=== PATIENT | female | born 1935 | race Caucasian/White ===

== ENCOUNTER 2016-04-09 14:26 | Emergency (ER) | payer MEDICARE ==
[~2016-04-09 14:26] MED LIST: ACT300 PO; CHOL10002 PO; CLOT15CR27 TOP; COR40 PO; FES300 PO; FURO40TA PO; K10 PO; KLO1 PO; LACL30 PO; PROT40T PO; SPIR25TA17 PO; TRAZ50TA52 PO; [UNRECOGNIZED DRUG - CODE] PO
[2016-04-09 14:43] VITALS: BP 137/61; PULSE 100; RESP 16; O2SAT 100
[2016-04-09 17:05] LABS: BASOPHILS % (AUTO) 0.3 % (0-3); EOSINOPHILS % (AUTO) 1.3 % (0-5); MONOCYTES % (AUTO) 6.1 % (4-12); Mean Corpuscular Hemoglobin 30.4 pg (27.0-35.0); Mean Corpuscular Volume 89.1 fL (81-100); NEUTROPHILS % (AUTO) 86.4 % (40-74); Platelet Count 62 bil/L (150-400)
[2016-04-09 17:34] LABS: TROPONIN T < 0.010 ug/L (0.0-0.011)
[2016-04-09 17:39] LABS: Magnesium 2.3 mg/dL (1.6-2.6)
--- NOTE | 2016-04-09 17:54 | ED.REPORT ---
HPI-Extremity Problem Lower Date of Service Apr 09, 2016 ED Provider: Doc,Ed MD The patient is a 80 year old female who presents to the emergency department complaining of bilateral lower extremity swelling that has been worsening over the last few days. The patient injured her back 5 days ago and since has been sleeping in her recliner. She normally sleeps in her bed with her legs elevated. She has noticed some oozing from her lower leg on the left. Her legs are chronically red. She has had similar symptoms in the past. She denies numbness, weakness, fever, chills, chest pain or shortness of breath. Nursing Notes Stated Complaint: POSSIBLE EDEMA, BACK PAIN Chief Complaint: General Complaint Nursing Notes Reviewed: Yes Allergies: Coded Allergies: Penicillins (Verified Allergy, Unknown, 04/09/16) Tetanus Vaccines and Toxoid (Verified Allergy, Unknown, 04/09/16) Scheduled Cholecalciferol-Expunged Drug, Do Not Renew! (Vitamin D3-Expunged Drug, Do Not Renew!) 1,000 Unit Tablet 1,800 UNITS PO DAILY ClonazePAM-Expunged Drug, Do Not Renew! (ClonazePAM-Expunged Drug, Do Not Renew! ) 1 Mg Tablet 1 MG PO TID Clotrimazole-Expunged Drug, Do Not Renew! (Mycelex 1%-Expunged Drug, Do Not Renew!) 60 Appl/15 Gm Cream 1 APPL TOP TID Ferrous Sulfate-Expunged Drug, Do Not Renew! (Feosol-Expunged Drug, Do Not Renew !) 325 Mg Tablet 325 MG PO BID Furosemide-Expunged Drug, Do Not Renew! (Lasix-Expunged Drug, Do Not Renew!) 40 Mg Tablet 40 MG PO DAILY Lactulose-Expunged Drug, Do Not Renew! (Cephalac-Expunged Drug, Do Not Renew!) 20 Gm/30 Ml Syrup 30 ML PO BID Nadolol-Expunged Drug, Do Not Renew! (Nadolol-Expunged Drug, Do Not Renew!) 40 Mg Tablet 40 MG PO DAILY Pantoprazole-Expunged Drug, Do Not Renew! (Protonix-Expunged Drug, Do Not Renew! ) 40 Mg Tabec 40 MG PO DAILYAC Paroxetine-Expunged Drug, Do Not Renew! (Paxil-Expunged Drug, Do Not Renew!) 10 Mg Tablet 10 MG PO DAILY Potassium Chl-Expunged Drug, Do Not Renew! (G-LLC-Pjzifjov Drug, Do Not Renew!) 10 Meq Tabsr 40 MEQ PO DAILY TAKE WITH FOOD Spironolactone-Expunged Drug, Do Not Renew! (Spironolactone-Expunged Drug, Do Not Renew!) 25 Mg Tablet 100 MG PO DAILY Trazodone-Expunged Drug, Do Not Renew! (Trazodone-Expunged Drug, Do Not Renew!) 50 Mg Tablet 50 MG PO HS Ursodiol-Expunged Drug, Do Not Renew! (Actigall--Expunged Drug, Do Not Renew!) 300 Mg Capsule 600 MG PO BID Treatment and prevention of gallstones General Time Seen by MD: 17:54 Chief Complaint Other (bilateral lower extremity redness and swelling) Hx Obtained From: Patient, Son Arrived By: Walk-in Onset Occurred: 4 days ago Symptom Duration: Since onset Location: : Leg left: Leg right Quality: Painful Severity: Current: Mild Severity: Maximum: Mild Associated with: Reports: Swelling Pertinent Negative: Pt denies other symptoms Recent Healthcare: No recent doctor visit, No recent hospitalization Similar Sx Previous: Yes Past Medical History Past Medical History 1. Primary Biliary Cirrhosis and gastric leiomyoma (followed by Dr. Nehal Palacios of [facility] in [place]- 2. 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 Iron deficiency anemia 4. GERD 5. Osteoporosis 6. Depression/Anxiety 7. Chronic hepatic encephalopathy and portal gastropathy due to #1 8. Upper GI bleed from esophageal varices with severe orthostatic hypotension Past Surgical History Reports: Cholecystectomy, Hysterectomy Smoking History Former Smoker Social History Alcohol Use: Denies alcohol use Drug Use: Denies drug use Other Social History: Good social support, Local resident Ambulatory Status Independent Review of Systems Constitutional: Denies: Chills, Fever Musculoskeletal: Reports: Back pain, Extremity pain, Extremity swelling Skin: Reports Rash Neurologic: Denies: Focal weakness, Numbness Complete sys rev & neg: except as marked. Respiratory: Denies: Shortness of breath Cardiovascular: Denies: Chest pain Physical Exam Initial Vital Signs Vital Signs (First) Date Time Temp Pulse Resp B/P Pulse Ox O2 Delivery O2 Flow Rate FiO2 04/09/16 14:43 36 100 16 137/61 100 Room Air Initial VS: Reviewed Head / Eyes: Atraumatic, Normocephalic, PERRL ENT: Mucous membranes moist, Conjunctiva normal, No scleral icterus Neck: Supple, Non-tender, Full range of motion Respiratory: Breath sounds normal, Clear to auscultation, No respiratory distress Abdomen / GI: Soft, Non-tender, No guarding, No rebound, No distention Lymphatic: No lymphadenopathy Upper Extremities: Vascular intact, Neuro intact, No swelling, No tenderness Skin: Warm, Dry, No cyanosis Neurologic: Alert, Oriented, Nonfocal Psychiatric: Mood/affect normal, Behavior normal, Normal thought content Lower Extremity / Pelvis / MS: Neurologic intact, Vascular intact 2+ pitting edema bilateral lower extremities with some clear fluid weeping on the left. 2+ PT pulses palpable. Sensation and motor intact. General/Constitutional: Awake, Alert Interpretation & Diagnostics Lab Results Interpretation Result Diagram: 04/09/16 1651 04/09/16 1651 Test 04/09/16 16:51 White Blood Count 4.0th/mm3 (3.8-10.1) Red Blood Count 3.49mil/mm3 (3.90-5.20) Hemoglobin 10.6g/dL (12.0-15.6) Hematocrit 31.1% (35.0-46.0) Mean Corpuscular Volume 89.1fL (81-100) Mean Corpuscular Hemoglobin 30.4pg (27.0-35.0) Mean Corpuscular Hemoglobin Concent 34.1% (32.0-37.0) Red Cell Distribution Width 17.3% (12.3-15.4) Platelet Count 62bil/L (150-400) Neutrophils (%) (Auto) 86.4% (40-74) Lymphocytes (%) (Auto) 5.6% (14-46) Monocytes (%) (Auto) 6.1% (4-12) Eosinophils (%) (Auto) 1.3% (0-5) Basophils (%) (Auto) 0.3% (0-3) Sodium Level 136mEq/L (134-144) Potassium Level 3.9mEq/L (3.5-5.2) Chloride Level 99mEq/L (97-108) Carbon Dioxide Level 21mmol/L (18-29) Blood Urea Nitrogen 47mg/dL (8-27) Creatinine 0.99mg/dL (0.57-1.00) Estimat Glomerular Filtration Rate 78mL/min (>59) Glucose Level 123mg/dL (60-99) Calcium Level 9.0mg/dL (8.5-10.1) Magnesium Level 2.3mg/dL (1.6-2.6) Total Bilirubin 1.3mg/dL (0.0-1.2) Aspartate Amino Transf (AST/SGOT) 33U/L (0-50) Alanine Aminotransferase (ALT/SGPT) 25U/L (0-32) Alkaline Phosphatase 91U/L (25-165) Troponin T < 0.010ug/L (0.0-0.011) Pro-B-Type Natriuretic Peptide 116.5pg/mL (0-738) Total Protein 7.5g/dL (6.4-8.4) Albumin 3.5g/dL (3.4-5.0) ECG Interpretation ECG Interpretation: Sinus tachycardia with a rate of [address] elevation, slight depression in lead I and aVL Time: 17:31 Interpreted by: ED physician Re-Eval/Medical Decision Med Decision/Clinical Course 80-year-old female here with bilateral lower extremity swelling over the last several days. Differential diagnosis includes but is not limited to edema versus new onset heart failure versus DVT versus cellulitis. Patient has been sleeping in a recliner recently, and not elevating her legs the way she usually does. She has no fever, and her labs are unremarkable. I do not feel she has cellulitis at this time. Her pro BNP is normal, ruling out heart failure. I do not think that she has bilateral DVTs causing swelling. She has had swelling like this in the past when she sleeps in the recliner. This is most consistent with dependent edema. She has been discharged with advice to keep her legs elevated as much as possible and follow-up with her primary care physician. She is aware and amenable to discharge at this time. Source of Hx: Old records, Family Re-Evaluation/Progress : Time of Eval: 18:18 Re-Evaluation/Progress Note: Discussed plan for discharge. All questions were addressed. Counseled Regarding: Diagnosis, Lab results, Need for follow-up, When/why to return to ED Discharge & Departure Impression: Primary Impression: Bilateral lower extremity edema Disposition: Home Discharge Condition All VS Reviewed: Yes Condition: Stable Additional Instructions: Your labs today are reassuring. The swelling will improve with elevation. Keep your legs elevated as much as possible. Call your doctor tomorrow to schedule a followup appointment for early next week. Please return for any concerning symptoms. Scribe Attestation Portions of this note were transcribed by Aislinn Rockwell. I, Dr. Dobson personally performed the history, physical exam and medical decision-making; I reviewed and confirmed the accuracy of the information in the transcribed note. Signed by : Kaitlyn Bucio, 04/09/2016 and 1825. Kalpana Dobson MD Apr 09, 2016 17:54 Aislinn Rockwell Apr 09, 2016 18:13
[2016-04-09 18:07] VITALS: BP 117/50; PULSE 92; RESP 20; O2SAT 100
[2016-04-09 18:50] VITALS: BP 117/50; PULSE 92; RESP 20; O2SAT 100
== END 2016-04-09 18:52 | disposition home or self-care (01) ==
LOC: SED 14:26
DX: R60.0 Localized edema (principal); M54.9 Dorsalgia, unspecified; K21.9 Gastro-esophageal reflux disease without esophagitis; X58.XXXA Exposure to other specified factors, initial encounter; Y93.9 Activity, unspecified; Y99.8 Other external cause status; Y92.9 Unspecified place or not applicable; Z86.012 Personal history of benign carcinoid tumor; Z87.891 Personal history of nicotine dependence; Z88.7 Allergy status to serum and vaccine; Z88.0 Allergy status to penicillin

== ENCOUNTER 2016-04-11 20:53 | Inpatient (IN) | payer MEDICARE ==
[~2016-04-11] VITALS: Ht 167.6 cm; Wt 91.5 kg
[2016-04-11 20:58] VITALS: BP 151/71; PULSE 110; RESP 14; O2SAT 100
--- NOTE | 2016-04-11 21:15 | ED.REPORT ---
HPI-Altered Mental Status Date of Service Apr 11, 2016 ED Provider: Kalpana Dobson MD This is a 80 year old female brought to the ED by EMS due to increased confusion of unknown onset, last seen normal two days ago. Pt lives at [facility], son was called by staff reporting increased confusion. Son found pt walking in her room naked and was unable to answer questions normally. Also reports diarrhea and back pain. Denies fever, chills, nausea, vomiting, constipation. Pt in the ED 2 days ago for bilateral lower extremity swelling, did not exhibit similar presentation at that time and was answering questions appropriately. Pt states he last spoke to the pt that day and is unaware of when the confusion began. Nursing Notes Stated Complaint: CONFUSION Chief Complaint: General Complaint Nursing Notes Reviewed: Yes Allergies: Coded Allergies: Penicillins (Verified Allergy, Unknown, 04/09/16) Tetanus Vaccines and Toxoid (Verified Allergy, Unknown, 04/09/16) Scheduled Cholecalciferol-Expunged Drug, Do Not Renew! (Vitamin D3-Expunged Drug, Do Not Renew!) 1,000 Unit Tablet 1,800 UNITS PO DAILY ClonazePAM-Expunged Drug, Do Not Renew! (ClonazePAM-Expunged Drug, Do Not Renew! ) 1 Mg Tablet 1 MG PO TID Clotrimazole-Expunged Drug, Do Not Renew! (Mycelex 1%-Expunged Drug, Do Not Renew!) 60 Appl/15 Gm Cream 1 APPL TOP TID Ferrous Sulfate-Expunged Drug, Do Not Renew! (Feosol-Expunged Drug, Do Not Renew !) 325 Mg Tablet 325 MG PO BID Furosemide-Expunged Drug, Do Not Renew! (Lasix-Expunged Drug, Do Not Renew!) 40 Mg Tablet 40 MG PO DAILY Lactulose-Expunged Drug, Do Not Renew! (Cephalac-Expunged Drug, Do Not Renew!) 20 Gm/30 Ml Syrup 30 ML PO BID Nadolol-Expunged Drug, Do Not Renew! (Nadolol-Expunged Drug, Do Not Renew!) 40 Mg Tablet 40 MG PO DAILY Pantoprazole-Expunged Drug, Do Not Renew! (Protonix-Expunged Drug, Do Not Renew! ) 40 Mg Tabec 40 MG PO DAILYAC Paroxetine-Expunged Drug, Do Not Renew! (Paxil-Expunged Drug, Do Not Renew!) 10 Mg Tablet 10 MG PO DAILY Potassium Chl-Expunged Drug, Do Not Renew! (Y-LOZ-Kkksmcsb Drug, Do Not Renew!) 10 Meq Tabsr 40 MEQ PO DAILY TAKE WITH FOOD Spironolactone-Expunged Drug, Do Not Renew! (Spironolactone-Expunged Drug, Do Not Renew!) 25 Mg Tablet 100 MG PO DAILY Trazodone-Expunged Drug, Do Not Renew! (Trazodone-Expunged Drug, Do Not Renew!) 50 Mg Tablet 50 MG PO HS Ursodiol-Expunged Drug, Do Not Renew! (Actigall--Expunged Drug, Do Not Renew!) 300 Mg Capsule 600 MG PO BID Treatment and prevention of gallstones General Time Seen by MD: 21:09 Chief Complaint Confused Hx Obtained From: Son Arrived By: Ambulance Sudden in Onset?: Yes Onset Occurred: Yesterday Symptom Duration: Since onset Severity: Current: Mild Pertinent Negative: Pt denies other symptoms Recent Healthcare: Recent doctor visit Similar Sx Previous: Yes Past Medical History Past Medical History 1. Primary Biliary Cirrhosis and gastric leiomyoma (followed by Dr. Nehal Palacios of [facility] in [facility] 2. 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 Iron deficiency anemia 4. GERD 5. Osteoporosis 6. Depression/Anxiety 7. Chronic hepatic encephalopathy and portal gastropathy due to #1 8. Upper GI bleed from esophageal varices with severe orthostatic hypotension Past Surgical History Reports: Cholecystectomy, Hysterectomy Smoking History Former Smoker Social History Alcohol Use: Denies alcohol use Drug Use: Denies drug use Other Social History: Good social support, Local resident Ambulatory Status Independent Review of Systems Constitutional: Denies: Chills, Fever Respiratory: Denies: Shortness of breath GI: Reports: Diarrhea, Denies: Abdominal pain, Constipation, Nausea, Vomiting Neurologic: Denies: Headache Psychiatric: Reports: Confusion Complete sys rev & neg: except as marked. Musculoskeletal: Reports: Back pain Physical Exam Initial Vital Signs Vital Signs (First) Date Time Temp Pulse Resp B/P Pulse Ox O2 Delivery O2 Flow Rate FiO2 04/11/16 20:58 36.5 110 14 151/71 100 Room Air Initial VS: Reviewed ENT: Mucous membranes moist, Conjunctiva normal, No scleral icterus Abdomen / GI: Soft, Non-tender, No guarding, No rebound, No distention Skin: Warm, Dry, No cyanosis Psychiatric: Mood/affect normal, Behavior normal, Normal thought content General/Constitutional: Awake Alertness: Positive: Confused Responds to every question with her name. Head / Eyes: Atraumatic, Normocephalic, PERRL, EOMI, No scleral icterus Neck: Atraumatic, Supple, No meningismus, Full range of motion, No swelling, Non-tender, No midline vertebral tend, No masses, No carotid bruit, Thyroid NL Respiratory / Chest: Breath sounds NL, Breath sounds = bilat, No respiratory distress, No rales, No rhonchi, No wheezing Cardiovascular: Heart rate NL, Regular rhythm, Heart sounds NL Lower Ext Edema: Positive: Bilateral 2+, Pitting Neurologic: Oriented X3, Speech NL, No motor deficits, No sensory deficits, CN II - XII intact, Cerebellar NL Lower Extremity / Pelvis / MS: Neurologic intact, Vascular intact L lower extremity is cooler than R leg, chronic venostasis changes in bilateral lower extremities. fine petechiae on both knees Black tarry stool Interpretation & Diagnostics Lab Results Interpretation Result Diagram: 04/12/16 0020 04/11/16 2100 Test 04/11/16 21:00 04/11/16 21:45 04/11/16 22:35 Prothrombin Time 11.8sec (8.1-12.5) Prothromb Time International Ratio 1.10ratio Activated Partial Thromboplast Time 26.7sec (22.8-33.0) Hold Blue Top Tube Received (Received) Sodium Level 137mEq/L (134-144) Potassium Level 4.1mEq/L (3.5-5.2) Chloride Level 102mEq/L (97-108) Carbon Dioxide Level 18mmol/L (18-29) Blood Urea Nitrogen 67mg/dL (8-27) Creatinine 1.00mg/dL (0.57-1.00) Estimat Glomerular Filtration Rate 77mL/min (>59) Glucose Level 151mg/dL (60-99) Calcium Level 9.6mg/dL (8.5-10.1) Magnesium Level 2.3mg/dL (1.6-2.6) Total Bilirubin 1.2mg/dL (0.0-1.2) Aspartate Amino Transf (AST/SGOT) 30U/L (0-50) Alanine Aminotransferase (ALT/SGPT) 28U/L (0-32) Alkaline Phosphatase 87U/L (25-165) Troponin T 0.010ug/L (0.0-0.011) Pro-B-Type Natriuretic Peptide 237.3pg/mL (0-738) Total Protein 7.2g/dL (6.4-8.4) Albumin 3.5g/dL (3.4-5.0) Hold Red Top Tube Received (Received) Hold [place]af Top Tube Received (Received) Acetaminophen Level 15.0ug/mL Rx (10-25) Urine Color Yellow (YELLOW) Urine Appearance Slightly cloudy Urine pH 6.0 (5.0-8.0) Urine Specific [place] 1.020 (1.003-1.035) Urine Protein Negativemg/dL (NEG,TRACE) Urine Glucose (UA) Negativemg/dL (NEGATIVE) Urine Ketones Tracemg/dL (NEGATIVE) Urine Occult Blood Trace (NEGATIVE) Urine Nitrite Negative (NEGATIVE) Urine Bilirubin Negative (NEGATIVE) Urine Urobilinogen Normalmg/dL (NORMAL) Urine Leukocyte Esterase Trace (NEGATIVE) Urine RBC 0-2/hpf (0-2) Urine WBC 6-10/hpf (0-5) Urine Epithelial Cells Occasional/hpf (NONE-MOD) Urine Crystals None seen (NONE SEEN) Urine Bacteria Many/hpf (NONE-FEW) Urine Hyaline Casts None/lpf (NONE) Urine Granular Casts None seen (NONE SEEN) Urine Waxy Casts None seen (NONE SEEN) Urine Red Blood Cell Casts None seen (NONE SEEN) Urine White Blood Cell Casts None seen (NONE SEEN) Urine Mucus None seen (None Seen) Urine Trichomonas None seen (NONE SEEN) Urine Yeast None (NONE SEEN) Urine Culture Reflexed Indicated White Blood Count 7.9th/mm3 (3.8-10.1) Red Blood Count 2.84mil/mm3 (3.90-5.20) Hematocrit 25.7% (35.0-46.0) Mean Corpuscular Volume 90.5fL (81-100) Mean Corpuscular Hemoglobin 29.9pg (27.0-35.0) Mean Corpuscular Hemoglobin Concent 33.1% (32.0-37.0) Red Cell Distribution Width 17.9% (12.3-15.4) Platelet Count 81bil/L (150-400) Neutrophils (%) (Auto) 90.0% (40-74) Lymphocytes (%) (Auto) 4.5% (14-46) Monocytes (%) (Auto) 4.8% (4-12) Eosinophils (%) (Auto) 0% (0-5) Basophils (%) (Auto) 0.1% (0-3) Lactic Acid Level 1.9mmol/L (0.4-2.0) Ammonia 211ug/dL (18-53) ECG Interpretation ECG Interpretation: Sinus tachycardia at a rate of 114 with a PVC No ST elevation T-wave inversion in lead 3 Time: 21:38 Interpreted by: ED physician X-Ray Chest Interpretation Chest Xray Interpretation: IMPRESSION: Chronic interstitial changes. No acute pulmonary process. Dictated by: Teri De Los Santos M.D. on 04/11/2016 at 21:56 Approved by: Teri De Los Santos M.D. on 04/11/2016 at 21:56 CT Head Interpretation Conclusion: Mild age related change. No acute intracranial abnormality. Radiologist: Danni Bridges MD Re-Eval/Medical Decision Med Decision/Clinical Course 80-year-old female with extensive past medical history including dieulafoy lesion, upper GI bleed, cirrhosis, hepatic encephalopathy, chronic venous stasis , anemia here with altered mental status. Differential diagnosis includes but is not limited to urinary tract infection versus pneumonia versus brain lesion versus hepatic encephalopathy. While we were cleaning the patient, it was noted that she had large amounts of melena and some bright red blood per rectum. At this time, I added a type and screen to her workup. Additionally, her right lower extremity was much warmer than her left lower extremity, and diffusely erythematous more so than the left. He is very concerned for cellulitis of the right lower extremity. During her stay, she started to have large volume hematemesis. I discussed the case with who agreed to come in to scope the patient emergently. She does have evidence of urinary tract infection, along with hepatic encephalopathy with a ammonia of 211. Her initial hemoglobin came back at 8.6 which is down 2 points from her visit 2 days ago. Her repeat H&H several hours later was 7. After discussing with Dr. Shine, I started a blood transfusion, and she was taken straight to the endoscopy suite. She has been accepted by hospitalist Dr. Pritchard to the ICU. At this time, she is DO NOT RESUSCITATE, however, family does feel that she would want to be scoped and have intervention on her upper GI bleed if possible. Re-Evaluation/Progress #1: Time of Eval: 22:27 Re-Evaluation/Progress Note: Discussed lab and imaging results and need for admission. Pt understands and agrees with plan, all questions addressed. Re-Evaluation/Progress #2: Time of Eval: 23:38 Re-Evaluation/Progress Note: Pt actively having large volume hematemesis with clots Re-Evaluation/Progress #3: Time of Eval: 23:54 Re-Evaluation/Progress Note: Re-checked, discussed pt care with family members now present in the room. Consultation #1: Referral / Consult Name: Bentley Shine MD Call Returned at: 23:14 Storage Solutions Architect: Will see patient, Agrees with eval, Agrees with plan Note: Consult with GI Consultation #2: Referral / Consult Name: Yasmine Pritchard DO Consulted With: Hospitalist Call Returned at: 23:22 Storage Solutions Architect: Accepts admit Consultation #3: Referral / Consult Name: Bentley Shine MD Call Returned at: 23:41 Storage Solutions Architect: Will see patient Note: GI consult Counseled Regarding: Diagnosis, Lab results, Need for follow-up, Need for admission Patient Discharge & Departure Impression: Primary Impression: Anemia Anemia type: unspecified type Qualified Code: D64.9 - Anemia, unspecified Additional Impressions: Gastrointestinal bleed GI bleed type/associated pathology: unspecified gastrointestinal hemorrhage type Qualified Code: K92.2 - Gastrointestinal hemorrhage, unspecified UTI (urinary tract infection) Urinary tract infection type: site unspecified Hematuria presence: without hematuria Qualified Code: N39.0 - Urinary tract infection, site not specified Disposition: ADMITTED TO HOSPITAL Discharge Condition All VS Reviewed: Yes Condition: Stable Referrals: NOPCP (PCP) Crit Care Except Billable Proc Time Spent: 30-74 minutes Services Performed: Patient management by me, Time spent at bedside, Reviewing test results, Reviewing imaging, Discussing patient care, Documentation in record, Time with fam/surrogate Scribe Attestation Portions of this note were transcribed by Gold Reyes. I, Dr. Dobson personally performed the history, physical exam and medical decision-making; I reviewed and confirmed the accuracy of the information in the transcribed note. Signed by: chirag Funk. 04/11/2016, 21:00. Kalpana Dobson MD Apr 11, 2016 21:15 GOLD REYES Apr 11, 2016 21:28
[2016-04-11] MEDS ORDERED: 0.9% Sodium Chloride 1,000 ML IV ONE (21:45)
[2016-04-11] MEDS ORDERED: levoFLOXacin Inj 750 MG in IV Premix 1 EACH IV ONE (21:50)
[2016-04-11] MEDS ORDERED: metroNIDAZOLE Inj 500 MG in IV Premix 1 EACH IV ONE (21:50)
[2016-04-11 21:51] LABS: TROPONIN T 0.01 ug/L (0.0-0.011)
[2016-04-11] MEDS ORDERED: Pantoprazole 4 mg/mL 10 mL Inj IVPUSH ONE ×2 (21:55→23:45)
--- NOTE | 2016-04-11 21:58 | DRSVH ---
PROCEDURE: X-RAY CHEST ONE VIEW, PORTABLE ([id number]) INDICATIONS: confused TECHNIQUE: One view of the chest was acquired. COMPARISON: [facility], , CHEST 1VW (PORTABLE), 05/19/2013, 11:41. [facility], CR, CHEST 1VW (PORTABLE), 05/18/2013, 6:22. FINDINGS: Surgical changes and devices: Upper quadrant clips are noted. Lungs and pleura: Chronic interstitial changes are present. Mediastinum: Mediastinal contours appear normal. Heart size is normal. Bones and chest wall: No suspicious bony lesions. Overlying soft tissues appear unremarkable. IMPRESSION: Chronic interstitial changes. No acute pulmonary process. Dictated by: Teri De Los Santos M.D. on 04/11/2016 at 21:56 Approved by: Teri De Los Santos M.D. on 04/11/2016 at 21:56
[2016-04-11 22:01] LABS: INR 1.1 ratio
[2016-04-11 22:02] LABS: Magnesium 2.3 mg/dL (1.6-2.6)
[2016-04-11 22:20] LABS: APPEARANCE,URINE SLIGHTLY CLOUDY (CLEAR,HAZY); COLOR,URINE YELLOW (YELLOW); OCCULT BLOOD,URINE TRACE (NEGATIVE); UROBILINOGEN,URINE NORMAL (NORMAL)
[2016-04-11 22:54] LABS: BASOPHILS % (AUTO) 0.1 % (0-3); EOSINOPHILS % (AUTO) 0 % (0-5); MONOCYTES % (AUTO) 4.8 % (4-12); Mean Corpuscular Hemoglobin 29.9 pg (27.0-35.0); Mean Corpuscular Volume 90.5 fL (81-100); Platelet Count 81 bil/L (150-400)
[2016-04-11] MEDS ORDERED: Ondansetron 2 mg/mL 2 mL Inj IVPUSH PRN (23:35)
[2016-04-11] MEDS: Pantoprazole Inj 80 MG in 0.9% Sodium Chloride 80 ML IV SCH (23:40)
[2016-04-11] MEDS ORDERED: Erythromycin Inj 250 MG in 0.9% Sodium Chloride 100 ML IV ONE (23:45)
[2016-04-11] MEDS: Octreotide Inj 500 MCG in 0.9% Sodium Chloride 99 ML IV SCH (23:54)
[2016-04-12] VITALS (16 sets, daily range): BP systolic 105–141; BP diastolic 43–76; PULSE 95–112; RESP 16–20; O2SAT 95–100
[2016-04-12] MEDS ORDERED: 0.9% Sodium Chloride 250 ML IV STA (00:39)
--- NOTE | 2016-04-12 00:45 | PCM.HPANE ---
Patient Data Date of Service: Apr 12, 2016 Surgeon Admitting Provider:Yasmine Pritchard DO Attending Provider:Yasmine Pritchard DO Primary Care Physician:Alex Other Provider:Ezequiel Clancy Anesthesia Reason for Visit Gi Bleed, Anemia, Uti Ht/WT & BMI Height (Feet): 5 Height (Inches): 7 Weight (Kilograms): 75 Body Mass Index Allergies Coded Allergies: Penicillins (Verified Allergy, Unknown, 04/09/16) Tetanus Vaccines and Toxoid (Verified Allergy, Unknown, 04/09/16) Past Anesthesia History Anesthesia History: Denies:: Abnormal Airway, Anesthesia Reactions, Difficult Intubation Diabetes History Hx Diabetes?: No MRSA MRSA: No Medications Active Scripts Clotrimazole-Expunged Drug, Do Not Renew! (Mycelex 1%-Expunged Drug, Do Not Renew!)60 Appl/15 Gm Cream1 Appl TOP TID 30 Days Prov:Israel Guevara MD 05/21/13 Nadolol-Expunged Drug, Do Not Renew! 40 Mg Gwszye14 Mg PO DAILY 30 Days Prov:Israel Guevara MD 05/21/13 Furosemide-Expunged Drug, Do Not Renew! (Lasix-Expunged Drug, Do Not Renew!)40 Mg Bogmin66 Mg PO DAILY 30 Days Prov:Israel Guevara MD 05/21/13 Spironolactone-Expunged Drug, Do Not Renew! 25 Mg Minbnc806 Mg PO DAILY 30 Days Prov:Israel Guevara MD 05/21/13 Pantoprazole-Expunged Drug, Do Not Renew! (Protonix-Expunged Drug, Do Not Renew! )40 Mg Tabec40 Mg PO DAILYAC 30 Days Prov:Israel Guevara MD 05/21/13 Reported Medications Cholecalciferol-Expunged Drug, Do Not Renew! (Vitamin D3-Expunged Drug, Do Not Renew!)1,000 Unit Tablet1,800 Units PO DAILY 05/17/13 Paroxetine-Expunged Drug, Do Not Renew! (Paxil-Expunged Drug, Do Not Renew!)10 Mg Dkanch91 Mg PO DAILY 05/17/13 Lactulose-Expunged Drug, Do Not Renew! (Cephalac-Expunged Drug, Do Not Renew!) 20 Gm/30 Ml Syrup30 Ml PO BID 01/20/13 Ferrous Sulfate-Expunged Drug, Do Not Renew! (Feosol-Expunged Drug, Do Not Renew !)325 Mg Ywikbs353 Mg PO BID 01/20/13 Potassium Chl-Expunged Drug, Do Not Renew! (T-GBS-Dgkxlvxb Drug, Do Not Renew!) 10 Meq Tabsr40 Meq PO DAILY #30 TAB TAKE WITH FOOD 01/20/13 Trazodone-Expunged Drug, Do Not Renew! 50 Mg Ybaunu04 Mg PO HS 01/20/13 Ursodiol-Expunged Drug, Do Not Renew! (Actigall--Expunged Drug, Do Not Renew!) 300 Mg Otwyyfo822 Mg PO BID Treatment and prevention of gallstones 01/20/13 ClonazePAM-Expunged Drug, Do Not Renew! 1 Mg Tablet1 Mg PO TID 01/20/13 History History of ENT Problems?: Yes HEENT History: Positive for:: Cataracts Denies:: Abnormal Airway Difficult Intubation Dysphagia Sinus Problem Hx of Heart Problems?: Yes Cardiovascular History: Positive for:: Edema Denies:: AICD Cardiac Surgery Congestive Heart Failure Hypertension Pacemaker Hx of Respiratory Problem?: No Respiratory History: Positive for:: Hemoptysis Denies:: Tuberculosis Hx Neurologic Problems?: Yes (hepatic encephalopathy) Hx of GI Problems?: Yes Gastrointestinal History: Positive for:: Gastrointestinal Bleeding (upper GI bleeding) Heartburn Liver Disease (primary bilary cirrhosis) Rectal Bleeding Denies:: Hepatitis Hiatal Hernia Hx of Problems?: No Hx Musculoskeletal Problems?: Yes Musculoskeletal History: Denies:: Back Injury Joint Replacement Musculoskeletal Trauma Hx of Psycho/Social Problems?: No Hx Surgeries?: Yes (Gallbladder, Hysterectomy ) Hx Any Other Health Problems?: No Other History: Positive for:: Hospitalization Denies:: Thyroid Disease History Blood Transfusions: Denies:: Blood Transfusions Hx Diabetes: No Hx Alcohol Use: NoHx Substance Use: No Smoking Status: Former Smoker Have You Smoked inLast 12 mo: No Stop/Bang Risk Assessment Category Category 1A: Patient has history of documented sleep apnea, and HAS NOT received any narcotic, sedative or anesthesia administration during this stay. Category 1B: Patient has history of documented sleep apnea, and HAS received any narcotic , sedative or anesthesia administration during this stay Category 2: Patient has SUSPECTED Obstructive Sleep Apnea, and HAS received any narcotic , sedative or anesthesia administration during this stay. Category 3: Patient has SUSPECTED Obstructive Sleep Apnea and HAS NOT received narcotic, sedative or anesthesia administration during this stay. Category 4: Outpatient in Procedural Areas with known sleep apnea or who screen positive for High Risk via the STOP/BANG questionnaire. Exam Exam Vital Signs Vital Signs Date Time Temp Pulse Resp B/P Pulse Ox O2 Delivery O2 Flow Rate FiO2 04/12/16 00:00 36.2 103 19 141/58 98 Room Air 04/11/16 20:58 36.5 110 14 151/71 100 Room Air General Appearance: Other (unresponsive, eyes open but not talking, not following commands) HEENT/AIRWAY: MP 3 Lungs: Normal Air Movement Heart: Exam Unremarkable Meds/Labs/Diagnostics Admission Meds Current Medications Levofloxacin/ Dextrose/Premix (Levaquin Inj/IV Premix) 150 ml @ 100 mls/hr ONCE ONCE IV Last administered on 04/11/16 22:50; Start 04/11/16 at 21:50; Stop 04/11/16 at 23:19; Status DC Pantoprazole 40 mg 40 mg ONCE ONCE IVPUSH Last administered on 04/11/16 22:36 ; Start 04/11/16 at 21:55; Stop 04/11/16 at 21:56; Status DC Octreotide Acetate/Sodium Chloride (SandoSTATIN Inj/ Normal Saline) 100 ml @ 10 mls/hr Q10H IV Last administered on 04/11/16 23:54; Start 04/11/16 at 23:10 Octreotide Acetate 50 mcg 50 mcg ONCE ONCE IVPUSH Last administered on 23:54; Start 04/11/16 at 23:30; Stop 04/11/16 at 23:31; Status DC Erythromycin Lactobionate/ Sodium Chloride (Erythromycin Inj/Normal Saline) 105 ml @ 210 mls/hr ONCE ONCE IV Last administered on 04/12/16 00:28; Start at 23:45; Stop 04/12/16 at 00:14; Status DC Labs Test 04/11/16 21:00 04/11/16 21:45 04/11/16 22:35 04/12/16 00:20 Prothrombin Time 11.8sec (8.1-12.5) Prothromb Time International Ratio 1.10ratio Activated Partial Thromboplast Time 26.7sec (22.8-33.0) Hold Blue Top Tube Received (Received) Sodium Level 137mEq/L (134-144) Potassium Level 4.1mEq/L (3.5-5.2) Chloride Level 102mEq/L (97-108) Carbon Dioxide Level 18mmol/L (18-29) Blood Urea Nitrogen 67mg/dL (8-27) Creatinine 1.00mg/dL (0.57-1.00) Estimat Glomerular Filtration Rate 77mL/min (>59) Glucose Level 151mg/dL (60-99) Calcium Level 9.6mg/dL (8.5-10.1) Magnesium Level 2.3mg/dL (1.6-2.6) Total Bilirubin 1.2mg/dL (0.0-1.2) Aspartate Amino Transf (AST/SGOT) 30U/L (0-50) Alanine Aminotransferase (ALT/SGPT) 28U/L (0-32) Alkaline Phosphatase 87U/L (25-165) Troponin T 0.010ug/L (0.0-0.011) Pro-B-Type Natriuretic Peptide 237.3pg/mL (0-738) Total Protein 7.2g/dL (6.4-8.4) Albumin 3.5g/dL (3.4-5.0) Hold Red Top Tube Received (Received) Hold [place] Top Tube Received (Received) Acetaminophen Level 15.0ug/mL Rx (10-25) Urine Color Yellow (YELLOW) Urine Appearance Slightly cloudy Urine pH 6.0 (5.0-8.0) Urine Specific [place] 1.020 (1.003-1.035) Urine Protein Negativemg/dL (NEG,TRACE) Urine Glucose (UA) Negativemg/dL (NEGATIVE) Urine Ketones Tracemg/dL (NEGATIVE) Urine Occult Blood Trace (NEGATIVE) Urine Nitrite Negative (NEGATIVE) Urine Bilirubin Negative (NEGATIVE) Urine Urobilinogen Normalmg/dL (NORMAL) Urine Leukocyte Esterase Trace (NEGATIVE) Urine RBC 0-2/hpf (0-2) Urine WBC 6-10/hpf (0-5) Urine Epithelial Cells Occasional/hpf (NONE-MOD) Urine Crystals None seen (NONE SEEN) Urine Bacteria Many/hpf (NONE-FEW) Urine Hyaline Casts None/lpf (NONE) Urine Granular Casts None seen (NONE SEEN) Urine Waxy Casts None seen (NONE SEEN) Urine Red Blood Cell Casts None seen (NONE SEEN) Urine White Blood Cell Casts None seen (NONE SEEN) Urine Mucus None seen (None Seen) Urine Trichomonas None seen (NONE SEEN) Urine Yeast None (NONE SEEN) Urine Culture Reflexed Indicated White Blood Count 7.9th/mm3 (3.8-10.1) Red Blood Count 2.84mil/mm3 (3.90-5.20) Hematocrit 25.7% (35.0-46.0) Mean Corpuscular Volume 90.5fL (81-100) Mean Corpuscular Hemoglobin 29.9pg (27.0-35.0) Mean Corpuscular Hemoglobin Concent 33.1% (32.0-37.0) Red Cell Distribution Width 17.9% (12.3-15.4) Platelet Count 81bil/L (150-400) Neutrophils (%) (Auto) 90.0% (40-74) Lymphocytes (%) (Auto) 4.5% (14-46) Monocytes (%) (Auto) 4.8% (4-12) Eosinophils (%) (Auto) 0% (0-5) Basophils (%) (Auto) 0.1% (0-3) Lactic Acid Level 1.9mmol/L (0.4-2.0) Ammonia 211ug/dL (18-53) Hemoglobin 7.0g/dL (12.0-15.6) Plan Impression Patient chart reviewed, patient interviewed and anesthestic plan with risks, benefits, and alternatives discussed, and informed consent obtained. ASA Physical Status: ASA3 Severe Disease Anesthetic Plan: GA (as per Dr. Torres request) Bene/Risks/Altern/Consents: Yes (discussed with family) HP Complete Prior to Induction: Yes German Palm MD Apr 12, 2016 00:45
[2016-04-12] MEDS ORDERED: Pantoprazole 4 mg/mL 10 mL Inj IVPUSH ONE (00:50)
[2016-04-12] MEDS ORDERED: Pantoprazole Inj 80 MG in 0.9% Sodium Chloride 80 ML IV SCH (00:50)
[2016-04-12] MEDS ORDERED: Lactated Ringer's 1,000 ML IV ONE ×4 (00:57→15:19)
--- NOTE | 2016-04-12 01:38 | PCM.HPMED ---
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 Pt lives at [facility], and her son was called by staff reporting increased confusion. Son found pt walking in her room naked and was unable to answer questions normally. He noticed black tarry stools in her toilet. Patient had been seen in the ED 2 days ago for bilateral lower extremity swelling, and at the time was at her baseline, conversing well and answering questions appropriately. Pt states he last spoke to the pt that day and states this is a significant, acute change in her mental status. Other than her lower extremity edema, she had not complained of fevers, chills, shortness of breath, or abdominal pain when he last saw her. She has never drank and quit smoking 30 years ago. Family states she uses NSAIDs and Tylenol often and an open bottle of Aleve was found in her room. APAP level was normal. EGD 05/17/13 during admit for prior upper GI bleed showed actively bleeding Dieulafoy's lesion, large varices (3 bands were placed), large spherical tumor in distal gastric body. In the ED, she was noted to have an episode of large amount of hematemesis, and she was also found to have black tarry stool. She remained altered and unable to answer questions. BP was 151/71, HR 110, O2 100 on room air. WBC was 7.9 with 90% neutrophils, Hb 8.4, Hct 25.7, plt 71. BUN was 67, Cr 1. Glucose 151, lactic acid 1.9. LFTs and bilirubin were normal, ammonia was 211. Troponin < 0.01. INR 1.1. UA showed 6-10 WBCs, negative nitrite, trace LE, many bacteria. CXR showed no acute process. Acetaminophen level normal at 15. Review of Systems: ROS unable to be obtained due to patient condition. Allergies Coded Allergies: Penicillins (Verified Allergy, Unknown, 04/09/16) Tetanus Vaccines and Toxoid (Verified Allergy, Unknown, 04/09/16) Home Medications Vit D3 Clonazepam 1 mg TID Clotrimazole cream Ferrous sulfate 325 mg BID Furosemide 40 mg daily Lactolose 20 g/30 ml - 30 ml PO BID Nadolol 40 mg daily Protonix 40 mg daily Paroxetine 10 mg daily Potassium chloride 40 meq daily Spironolactone 100 mg daily Trazodone 50 mg hs Ursodiol 600 mg BID PMH 1. Primary Biliary Cirrhosis and gastric leiomyoma (followed by Dr. Nehal Palacios of [facility] in [place] 2. 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 Iron deficiency anemia 4. GERD 5. Osteoporosis 6. Depression/Anxiety 7. Chronic hepatic encephalopathy and portal gastropathy due to #1 8. Upper GI bleed from esophageal varices with severe orthostatic hypotension Surgical History Cholecystectomy Hysterectomy Family History No family history of colon cancer, Crohn's, UC, celiac disease, or liver disease. Social History Hx Alcohol Use: No Hx Substance Use: No Hx Tobacco Use: No Smoking Status: Former Smoker (Quit 30 years ago) Exam Vital Signs Vital Sign - Last Date Time Temp Pulse Resp B/P Pulse Ox O2 Delivery O2 Flow Rate FiO2 04/11/16 20:58 36.5 110 14 151/71 100 Room Air Exam General: Alert, Confused and unable to answer questions, somewhat able to follow commands, No Acute Distress. Head: Normocephalic, atraumatic. External ears normal. Eyes: PERRLA, EOMI. Anicteric sclerae. Mouth: Mouth Normal, Mucous Membranes Moist/[place] Neck: Neck supple with full range of motion. Chest & Lungs: Clear to auscultation bilaterally with no crackles, wheezes, or rhonchi. Cardiovascular: Tachycardic, Normal S1, Normal S2, No Murmurs/Rubs/Gallops Abdomen: Non-tender, Non-distended, No masses, Normoactive bowel tones, Soft Extremities: Bilateral severe lower extremity pitting edema with erythema and warmth on legs Neurological: Grossly Neurologically Intact, Normal Speech, Confused. 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 1. Acute upper GI bleed. Present on admission. - Pt with hx of esophageal varices s/p banding, portal gastropathy and Dieulafoy 's lesion, and GERD presents with melena and hematemesis. Source of bleed could be related to any of her multiple conditions and she appears to be actively bleeding, so an urgent GI consult was made and and EGD is scheduled shortly. Family states pt may have been taking large amounts of NSAIDs and Tylenol. - Dr. Shine of Gastroenterology is consulting and performing EGD urgently. We appreciate his expertise. - Octreotide drip - Protonix bolus and drip - Trend H&H q4h until stable - Transfuse for Hb <7. - Crossmatch 2U PRBCs. - Holding nadolol until taking PO 2. Acute on chronic iron deficiency anemia. Present on admission. - Hb 8.5 on admission, dropped to 7 in 2 hours. Baseline Hb appears to be 9-10. - Transfuse 2U PRBCs stat - Continue to trend H&H - Hold home ferrous sulfate 3. Urinary tract infection, acute. Present on admission. - UA showed 6-10 WBC, trace LE, many bacteria. - Urine/blood cultures pending - Vancomycin and cefepime for coverage of UTI and cellulitis 4. Possible bilateral lower extremity cellulitis. Present on admission. - Pt has a history of lower extremity edema but her son states that the erythema on bilateral legs is new, and the edema is worse. - Vancomycin and cefepime for coverage of UTI and cellulitis - Elevate legs - Hold home Lasix and spironolactone, restart when stable. 5. Altered mental status, acute. Present on admission. - Pt has history of hepatic encephalopathy, likely not taking lactulose for 1-2 days. However, her confusion may be due to her acute bleed, UTI, or cellulitis. Will treat underlying problems, continue to monitor. Consider brain imaging if confusion does not improve with resolution of other problems. - defer starting home lactulose to GI. Holding as per GI at this time. Consideration to rifaximin when taking PO 6. Chronic thrombocytopenia. Present on admission. - Plt 81 on admit. Plt ranged around 45-70 in 2013. - Continue to monitor CBC 7. Hyperglycemia, acute. Present on admission. - BG 151 on admit. - A1c ordered - Humalog low dose correctional scale. 8. Depression/Anxiety - Continue home paroxetine, trazodone, and clonazepam when taking PO 9. Primary Biliary Cirrhosis - Hold home ursodiol 10. Other Chronic Conditions - GERD - Gastric leiomyoma - Osteoporosis Resuscitation Status: DNR/DNI:Do Not Resuscitate/Intubate Attending Statement The patient was seen and examined together with house staff on 04/12/2016 and I agree with the history, exam and plan as outlined in the note above. Alfred Hartley Apr 12, 2016 00:38 Yasmine Pritchard DO Apr 12, 2016 05:37
--- NOTE | 2016-04-12 01:56 | CONS ---
[address] [address] CONSULTATION REPORT PATIENT: THUAN LANDA : 1935 MR#: [id number] ADMIT: 04/12/2016 JOB ID: [id number] DATE OF SERVICE: REQUESTING PROVIDER: Kalpana Dobson MD REASON FOR CONSULTATION: Upper GI bleeding. HISTORY OF PRESENT ILLNESS: This is a 80-year-old female with a history of primary biliary cirrhosis and advanced portal hypertension with esophageal varices. She last had an upper GI bleed almost three years ago, and was treated by my colleague, Dr. Lr. He saw an active probable Dieulafoy's in the stomach, which was treated with Endoclips. He also banded varices that were quite generous in the distal esophagus x3. She additionally had a large, 3-4 cm leiomyoma that apparently was a known entity at that time. She was supposed to get followup with her outpatient production worker. Talking with family, it does not sound like this has happened at all. The patient was seen in the emergency department a couple of days ago complaining of bilateral lower extremity swelling. At that time, she had acceptable mentation. She had been sleeping in a recliner and so, was advised to, in essence, keep her feet up at night. The patient became altered today, and was found at home to have produced copious amounts of melena. She was brought in to the emergency department and found to be anemic. She subsequently developed bessy hematemesis, and emergent GI consultation for endoscopy was requested. The patient was started on antibiotic, octreotide drip, and PPI in the ED. Hemoglobin has dropped down to 7, and transfusion of packed RBCs is being requested. ALLERGIES: PENICILLINS, TETANUS VACCINES, and TOXOID. MEDICATIONS: 1. The patient is taking Tylenol periodically. 2. Apparently, according to family, she had an open bottle of Aleve and has been taking this recently for back pain. 3. She is also reportedly on ferrous sulfate. 4. Nadolol. 5. Clonazepam. 6. Trazodone. 7. Lasix 40 mg daily. 8. Lactulose. 9. Pantoprazole 40 mg a day. 10. Ursodiol. 11. Clotrimazole. 12. Vitamin D3. 13. Paxil. 14. Potassium. 15. Aldactone 100 mg. PAST MEDICAL HISTORY: Primary biliary cirrhosis, gastric leiomyoma, osteoporosis, depression, anxiety, cirrhosis, varices, Dieulafoy's related bleeding, prior gastric banding. FAMILY HISTORY: Noncontributory. SOCIAL HISTORY: The patient is and lives alone. She has family that checks in on her periodically as outlined above. REVIEW OF SYSTEMS: The patient has had altered mental status as above. She has been complaining of some back pain of late. Increasing lower extremity edema. She was found to have a urinary tract infection on admission here. PHYSICAL EXAMINATION: Blood pressure 141/58, pulse 103, respirations 19, temperature 36.2, 98% on room air. The patient attempted to follow commands but was, in essence, nonverbal at present. Lungs were generally clear bilaterally. Heart regular. She had 3-4+ pitting edema, with bilateral erythema in her lower extremities. The abdomen was mildly distended, and there was a firm mass sensation just left of midline in the mid abdomen. Difficult to say if this is hernia or whether this is palpation of the known gastric leiomyoma. At any rate, I did not appreciate any grimacing or tenderness to palpation. There was red blood in the suction canister at the bedside, and the patient's gown was coated in some red blood as well. LABORATORY DATA: Hemoglobin has dropped to 7. INR is 1.10. Platelets were 81. White count was 7.9, MCV 90.5. BUN was 67, creatinine 1.0, bilirubin is 1.2. The remainder of her liver tests are normal. Troponin is negative. Ammonia level is elevated. Lactate was 1.9. UA shows 6-10 WBCs. Tylenol level was 15.0. Chest x-ray shows chronic interstitial changes, no acute pulmonary process. ASSESSMENT AND PLAN: A 80-year-old female with acute upper gastrointestinal bleeding in the context of known esophageal varices, recent nonsteroidal anti-inflammatory drug (NSAID) use, and a large gastric leiomyoma. I agree with the octreotide and PPI drip. Agree with antibiotics. I requested 250 mg of IV erythromycin. Emergent endoscopy is discussed with the family. The risks of the procedure, including the possibility of further bleeding, aspiration, perforation were reviewed. The patient will likely need to be intubated for airway protection during the examination, and the patient's family are aware that we may not be able to extubate her immediately following the procedure. I would agree with 2 units of packed RBCs starting now, and serial CBC. Her platelets will need to be monitored closely. She may need a unit of platelets if bleeding persists.
[2016-04-12] MEDS ORDERED: Phenylephrine 10,000 mCg/mL Inj IVPUSH PRN (03:05)
[2016-04-12] MEDS ORDERED: Lactated Ringer's 1,000 ML IV SCH (03:05)
[2016-04-12] MEDS ORDERED: Dexamethasone 4 mg/mL Inj IVPUSH PRN (03:05)
[2016-04-12] MEDS ORDERED: Labetalol 5 mg/mL 4 mL Inj IV PRN (03:05)
[2016-04-12] MEDS ORDERED: HYDROmorphone 1 mg/mL Inj IVPUSH PRN (03:05)
[2016-04-12] MEDS ORDERED: Ondansetron 2 mg/mL 2 mL Inj IVPUSH PRN (03:05)
[2016-04-12] MEDS ORDERED: hydrALAZINE 20 mg/mL Inj IVPUSH PRN (03:05)
[2016-04-12] MEDS ORDERED: fentaNYL-PF 50 mCg/mL 2 mL Inj IVPUSH PRN (03:05)
[2016-04-12] MEDS ORDERED: Lactated Ringer's 500 ML IV PRN (03:05)
[2016-04-12] MEDS ORDERED: EPHEDrine Sulfate 50 mg/mL Inj IVPUSH PRN (03:05)
[2016-04-12] MEDS ORDERED: MetoCLOpramide 5 mg/mL 2 mL Inj IVPUSH PRN (03:05)
[2016-04-12] MEDS ORDERED: Atropine 0.4 mg/mL Inj IVPUSH PRN (03:05)
--- NOTE | 2016-04-12 03:44 | ENDO ---
[address] [address] ENDOSCOPY PROCEDURE PATIENT: THUAN LANDA : 1935 MR#: [id number] ADMIT: 04/12/2016 JOB ID: [id number] PROCEDURE: Esophagogastroduodenoscopy. INDICATIONS: A 80-year-old female with established portal hypertension and cirrhosis. She has previously had an upper GI bleed. It suggested a Dieulafoy's. She has had variceal bands placed in the esophagus. She presented today with symptoms of melena, anemia and red hematemesis, in the emergency department. Emergent EGD was thus pursued. EQUIPMENT: GIF-H180-J, and a 2-channel therapeutic bleed scope. COMPLICATIONS: None identified. SEDATION: General anesthesia with endotracheal intubation as provided by Dr. German Palm. COMPLICATIONS: None appreciated. PROCEDURE INFORMATION: After the risks and benefits were explained, written and verbal informed consent was obtained by the patient's son. Sedation was achieved. The patient was intubated. The GIF single channel endoscope was advanced through the esophagus, stomach, to the second portion of the duodenum. We searched for the source for active blood loss. Retroflexed views were accomplished in the stomach. We used a BioVac system, a Harrell Net and a snare to try to break up the clot material. This was only partially successful. We swapped the GIF scope out for the 2-channel bleed scope, and advanced this down to the proximal stomach. The clot material was removed almost entirely, apart from a couple of larger pieces that simply did not come. There was, however, no sign of any ongoing active bleeding present and we therefore terminated the procedure. The 2-channel scope was withdrawn from the patient. The patient was extubated and transferred to the PACU in stable condition. FINDINGS: 1. Esophagus: The patient had evidence of grade 2 distal esophageal varices in the distal esophagus. These demonstrated evidence of some erythema in places. However, there was no evidence of any nipple sign. No stigmata of recent bleeding. At the level of the cardia, there was a nodule that was eroded, but no sign of any active hemorrhage from this site. 2. Stomach: The patient had a large amount of red and dark red clot material throughout the proximal stomach. We spent quite a bit of time attempting to remove this by way of a Harrell Net, snare and the BioVac. We swapped out for the 2-channel scope as described above, which provided a little better suction capacity for the clot material. Ultimately, we did not identify an active Dieulafoy's. No obvious gastric varices. The lavage fluid stayed relatively and appropriately clear, to suggest there was no evidence of any ongoing active bleed at present. In the distal body and proximal antrum, there was an approximately 3 cm pedunculated polypoid structure that did have a slightly eroded apex. However, there was no sign of any active bleeding from this location and there did not appear to be any evidence of a nonbleeding visible vessel. The pyloric channel was wide open. I did not appreciate any ulcers or other mass lesions. Numerous retroflexed views during the case as well. 3. Duodenum: There was some blood staining the trevino throughout, but this easily lavaged away and there was no evidence of ulcer, vascular pathology or other source for acute blood loss. ENDOSCOPIC DIAGNOSES: 1. Grade 2 distal esophageal varices with scattered superficial erythema, but no stigmata of recent bleeding. 2. Eroded gastric cardia nodule. 3. Marked retention of blood clot and blood debris, requiring copious amounts of suction. 4. No sign of active bleeding. 5. Large pedunculated gastric polyp (previously described as a leiomyoma) with eroded apex. RECOMMENDATIONS: 1. Continue octreotide. 2. Continue PPI drip. 3. Continue antibiotics. 4. Once the patient has recovered from sedation, I would be okay with clear liquids, nothing red, and then n.p.o. after 10 a.m. for repeat endoscopy in the afternoon with anesthesia for a second look. 5. Continue to follow serial CBC, transfuse platelets and/or packed RBCs as needed.
--- NOTE | 2016-04-12 03:45 | PCM.ANEP2 ---
Post Anesthesia Evaluation ASA/CMS Post Anesthesia Date of Service: Apr 12, 2016 VS in Patient's Normal Range?: Yes Resp Stable; Airway Patent?: Yes CV Function & Hydration Stable: Yes Mental Status Recovered?: Yes Pain control Satisfactory?: Yes N/V Control Satisfactory?: Yes German Palm MD Apr 12, 2016 03:45
--- NOTE | 2016-04-12 03:45 | PCM.ANEP1 ---
Post Anesthesia Phase 1 PACU Phase 1 Assessment Date of Service: Apr 12, 2016 Vital Signs Vital Signs Date Time Temp Pulse Resp B/P Pulse Ox O2 Delivery O2 Flow Rate FiO2 04/12/16 03:28 36.4 102 16 100 Nasal Cannula 2 04/12/16 03:15 104 16 108/45 100 Nasal Cannula 2 04/12/16 03:00 106 17 116/47 100 Nasal Cannula 2 04/12/16 02:50 102 18 105/43 100 Nasal Cannula 2 04/12/16 02:46 36.3 106 18 106/43 100 Nasal Cannula 2 04/12/16 01:19 37.0 95 19 106/45 95 Room Air 04/12/16 00:00 36.2 103 19 141/58 98 Room Air 04/11/16 20:58 36.5 110 14 151/71 100 Room Air Anesthetic Administered: GA Level of Alertness: Drowsy, not talking Pain: No Nausea or Vomiting: No Oxygen Delivery: Nasal Cannula Lungs: Normal Air Movement German Palm MD Apr 12, 2016 03:45
[2016-04-12 04:40] LABS: BASOPHILS % (AUTO) 0 % (0-3); EOSINOPHILS % (AUTO) 0 % (0-5); MONOCYTES % (AUTO) 2.6 % (4-12); Mean Corpuscular Hemoglobin 30.1 pg (27.0-35.0); NEUTROPHILS % (AUTO) 91.5 % (40-74); Platelet Count 50 bil/L (150-400)
[2016-04-12 05:20] LABS: INR 1.22 ratio
[2016-04-12 05:24] LABS: TROPONIN T 0.01 ug/L (0.0-0.011)
[2016-04-12] MEDS ORDERED: fentaNYL-PF 50 mCg/mL 2 mL Inj ONE (06:52)
[2016-04-12] MEDS ORDERED: Succinylcholine Chloride 20 mg/mL 5 mL Inj ONE (06:57)
[2016-04-12] MEDS ORDERED: Dexamethasone 4 mg/mL Inj ONE (06:57)
[2016-04-12] MEDS ORDERED: Lidocaine PF 1% 30 mL Inj ONE (06:57)
[2016-04-12] MEDS ORDERED: EPHEDrine/NS 5 mg/mL 5 mL Syringe ONE (06:57)
[2016-04-12] MEDS ORDERED: Ondansetron 2 mg/mL 2 mL Inj ONE (06:57)
[2016-04-12] MEDS ORDERED: Propofol 10,000 mCg/mL 20 mL Inj ONE ×2 (06:57→06:59)
[2016-04-12] MEDS ORDERED: Phenylephrine/NS 100 mCg/mL 10 mL Syringe IVPUSH ONE (06:57)
[2016-04-12] MEDS ORDERED: Phenylephrine 10,000 mCg/mL Inj ONE (06:59)
--- NOTE | 2016-04-12 07:19 | PCM.CONPHA ---
Subjective Date of Service: Apr 12, 2016 Requesting Provider: Alfred Hartley Altered mental status, hematemesis, melena Reason for Pharmacy Consult: Vancomycin Dosing Objective Vital Signs Date Time Temp Pulse Resp B/P Pulse Ox O2 Delivery O2 Flow Rate FiO2 04/12/16 04:06 35.8 107 18 110/76 100 Room Air 04/12/16 03:45 Nasal Cannula 04/12/16 03:40 100 16 110/50 100 Nasal Cannula 2 04/12/16 03:28 36.4 102 16 108/46 100 Nasal Cannula 2 04/12/16 03:15 104 16 108/45 100 Nasal Cannula 2 04/12/16 03:00 106 17 116/47 100 Nasal Cannula 2 04/12/16 02:50 102 18 105/43 100 Nasal Cannula 2 04/12/16 02:46 36.3 106 18 106/43 100 Nasal Cannula 2 04/12/16 01:19 37.0 95 19 106/45 95 Room Air 04/12/16 00:00 36.2 103 19 141/58 98 Room Air 04/11/16 20:58 36.5 110 14 151/71 100 Room Air Weight (Kilograms): 87.900 Height (Feet): 5 Height (Inches): 6.00 Test 04/11/16 21:00 04/11/16 21:45 04/11/16 22:35 04/12/16 04:30 Activated Partial Thromboplast Time 26.7sec (22.8-33.0) Hold Blue Top Tube Received (Received) Magnesium Level 2.3mg/dL (1.6-2.6) Pro-B-Type Natriuretic Peptide 237.3pg/mL (0-738) Hold Red Top Tube Received (Received) Hold [place] Top Tube Received (Received) Acetaminophen Level 15.0ug/mL Rx (10-25) Urine Color Yellow (YELLOW) Urine Appearance Slightly cloudy Urine pH 6.0 (5.0-8.0) Urine Specific [place] 1.020 (1.003-1.035) Urine Protein Negativemg/dL (NEG,TRACE) Urine Glucose (UA) Negativemg/dL (NEGATIVE) Urine Ketones Tracemg/dL (NEGATIVE) Urine Occult Blood Trace (NEGATIVE) Urine Nitrite Negative (NEGATIVE) Urine Bilirubin Negative (NEGATIVE) Urine Urobilinogen Normalmg/dL (NORMAL) Urine Leukocyte Esterase Trace (NEGATIVE) Urine RBC 0-2/hpf (0-2) Urine WBC 6-10/hpf (0-5) Urine Epithelial Cells Occasional/hpf (NONE-MOD) Urine Crystals None seen (NONE SEEN) Urine Bacteria Many/hpf (NONE-FEW) Urine Hyaline Casts None/lpf (NONE) Urine Granular Casts None seen (NONE SEEN) Urine Waxy Casts None seen (NONE SEEN) Urine Red Blood Cell Casts None seen (NONE SEEN) Urine White Blood Cell Casts None seen (NONE SEEN) Urine Mucus None seen (None Seen) Urine Trichomonas None seen (NONE SEEN) Urine Yeast None (NONE SEEN) Urine Culture Reflexed Indicated Lactic Acid Level 1.9mmol/L (0.4-2.0) Ammonia 211ug/dL (18-53) White Blood Count 4.9th/mm3 (3.8-10.1) Red Blood Count 2.99mil/mm3 (3.90-5.20) Hemoglobin 9.0g/dL (12.0-15.6) Hematocrit 26.3% (35.0-46.0) Mean Corpuscular Volume 88.0fL (81-100) Mean Corpuscular Hemoglobin 30.1pg (27.0-35.0) Mean Corpuscular Hemoglobin Concent 34.2% (32.0-37.0) Red Cell Distribution Width 17.7% (12.3-15.4) Platelet Count 50bil/L (150-400) Neutrophils (%) (Auto) 91.5% (40-74) Lymphocytes (%) (Auto) 5.5% (14-46) Monocytes (%) (Auto) 2.6% (4-12) Eosinophils (%) (Auto) 0% (0-5) Basophils (%) (Auto) 0% (0-3) Prothrombin Time 13.1sec (8.1-12.5) Prothromb Time International Ratio 1.22ratio Sodium Level 142mEq/L (134-144) Potassium Level 4.5mEq/L (3.5-5.2) Chloride Level 109mEq/L (97-108) Carbon Dioxide Level 18mmol/L (18-29) Blood Urea Nitrogen 60mg/dL (8-27) Creatinine 0.87mg/dL (0.57-1.00) Estimat Glomerular Filtration Rate 90mL/min (>59) Glucose Level 164mg/dL (60-99) Calcium Level 8.1mg/dL (8.5-10.1) Total Bilirubin 1.5mg/dL (0.0-1.2) Aspartate Amino Transf (AST/SGOT) 25U/L (0-50) Alanine Aminotransferase (ALT/SGPT) 22U/L (0-32) Alkaline Phosphatase 63U/L (25-165) Troponin T 0.010ug/L (0.0-0.011) Total Protein 5.3g/dL (6.4-8.4) Albumin 2.5g/dL (3.4-5.0) Assessment/Plan Assessment/Plan A/ - 80 y/o female brought in ER for altered mental status, UTI, and upper GI bleed which Vancomycin ordered for empirical coverage - Afebrile, WBC: 7.9 initially, then 4.9 in second lab; blood cultures and urine sample are pending - Received in ED and during procedure erythromycin iv, Levaquin iv, Flagyl iv , and vancomycin 1.25 G iv once - With current weight, height, Scr: 0.87 mg/dL, estimated clearance ~ 50 ml/ min (ABW), t1/2 ~ 15 hrs, Vd ~ 52.7 L - Target trough: 15-20 - Comitant abx: Cefepime P/ - Give vancomycin 1.5 G iv q24h, starts @2330 today (first dose 1.25 G given @0400). Trough level ordered before 3rd dose @ 2300 on 04/13 Pharmacy will continue to follow and make necessary adjustment. Thank you for consulting clinical pharmacy in the care of the patient Reji Tucker, MariannD, [facility] Yu Tucker Apr 12, 2016 07:19
--- NOTE | 2016-04-12 07:22 | DRSVH ---
PROCEDURE: CT BRAIN WITHOUT CONTRAST ([id number]) INDICATIONS: confusion TECHNIQUE: Noncontrast 4.5 mm thick angled axial sections acquired from the foramen magnum to the vertex, with c oronal reformats. COMPARISON: None. FINDINGS: Image quality: Excellent. CSF spaces: Basal cisterns are patent. No extra-axial fluid collections. The ventricles are symmet rachel in size and shape. Brain: No intracranial bleeds or masses. There is cerebral volume loss for age, with resultant vent ricular and sulcal prominence. There are periventricular and deep white matter chronic small vessel ischemic changes. There is intracranial internal carotid artery atherosclerosis. Skull and face: Calvarium and visualized facial bones appear intact, without suspicious lesions. Sinuses: Visualized sinuses and mastoids are clear. IMPRESSION: 1. No acute intracranial findings. 2. Mild findings likely associated with chronic microvascular ischemic change. Dictated by: Marcia Petty M.D. on 04/12/2016 at 7:03 Approved by: Marcia Petty M.D. on 04/12/2016 at 7:19
--- NOTE | 2016-04-12 07:32 | NUR ---
Admit Patient admitted to the floor at approximately 0345. Patient is oriented to self only. VSS. 2nd unit of PRBC finished prior to arrival to the floor. Family updated on patient condition. Family took patient's belongings home. Protonix gtt and Octreotide gtt infusing. Antibiotics that weren't given ED are hung. Fleming draining to gravity. SpO2 100% on RA. Patient NPO until 1000 but has not requested liquid. Hgb 9 on AM labs. 2 units of blood on hold in the lab.
[2016-04-12] MEDS: Vancomycin Dose per Pharmacist XX SCH (09:04)
[2016-04-12] MEDS: Octreotide Inj 500 MCG in 0.9% Sodium Chloride 99 ML IV SCH ×2 (09:05→17:28)
[2016-04-12] MEDS: Pantoprazole Inj 80 MG in 0.9% Sodium Chloride 80 ML IV SCH ×2 (09:05→17:28)
[2016-04-12] MEDS: Cefepime Inj 2,000 MG in Dextrose 5% Minibag Plus 100 ML IV SCH ×2 (09:06→21:03)
--- NOTE | 2016-04-12 15:31 | NUR ---
Social Work: Assessment D&A: See initial assessment. Per EMR, pt is at [facility] with a GI bleed, anemia, and a UTI. Pt primary insurance is listed as [employer].; PCP is Yasmine Pritchard D.O.. Pt readmit score has not yet been assessed. RESIDENTIAL CARE FACILITY MANAGER met with pt and pt's son at bedside and explained RESIDENTIAL CARE FACILITY MANAGER role. As pt is disoriented, pt's son, Grant ([phone]) provided assessment answers. Son reports that pt lives in an independent apt. at [place], where pt has a meal plan and transportation assistance. Per son, pt is currently far from baseline; pt has had one similar episode of altered mental status secondary to health issues in recent hx, according to son. Pt does not have a CM and does not utilize any community resources. Pt's son does not endorse any hx of H.H. or SNF admission; son reports no preference when provided with agency choices. Pt son reports that either he or his brother, will provide transportation at d/c. Pt may benefit from H.H., pending MD assessment and P.T. eval. P: Developing. Pt may benefit from H.H. services, pending MD assessment and P.T. eval. RESIDENTIAL CARE FACILITY MANAGER will follow for d/c planning and additional needs. BRIT Kim Addendum: 04/12/16 at 1547 by KENNA MATIAS SS Amended: Links added.
[2016-04-12] MEDS: Lactated Ringer's 1,000 ML IV SCH ×2 (16:39→19:44)
--- NOTE | 2016-04-12 16:40 | PCM.HPANE ---
Patient Data Surgeon Admitting Provider:Yasmine Pritchard DO Attending Provider:Yasmine Pritchard DO Primary Care Physician:Alex Other Provider:Ezequiel Clancy Anesthesia Reason for Visit Gi Bleed, Anemia, Uti Ht/WT & BMI Height (Feet): 5 Height (Inches): 6.00 Weight (Kilograms): 87.900 Body Mass Index 31.14 Allergies Coded Allergies: Penicillins (Verified Allergy, Unknown, 04/09/16) Tetanus Vaccines and Toxoid (Verified Allergy, Unknown, 04/09/16) Past Anesthesia History Anesthesia History: Denies:: Abnormal Airway, Anesthesia Reactions, Difficult Intubation Diabetes History Hx Diabetes?: No MRSA MRSA: No Medications Active Scripts Clotrimazole-Expunged Drug, Do Not Renew! (Mycelex 1%-Expunged Drug, Do Not Renew!)60 Appl/15 Gm Cream1 Appl TOP TID 30 Days Prov:Israel Guevara MD 05/21/13 Nadolol-Expunged Drug, Do Not Renew! 40 Mg Fuqspg37 Mg PO DAILY 30 Days Prov:Israel Guevara MD 05/21/13 Furosemide-Expunged Drug, Do Not Renew! (Lasix-Expunged Drug, Do Not Renew!)40 Mg Riqwep05 Mg PO DAILY 30 Days Prov:Israel Guevara MD 05/21/13 Spironolactone-Expunged Drug, Do Not Renew! 25 Mg Kkojtm250 Mg PO DAILY 30 Days Prov:Israel Guevara MD 05/21/13 Pantoprazole-Expunged Drug, Do Not Renew! (Protonix-Expunged Drug, Do Not Renew! )40 Mg Tabec40 Mg PO DAILYAC 30 Days Prov:Israel Guevara MD 05/21/13 Reported Medications Cholecalciferol-Expunged Drug, Do Not Renew! (Vitamin D3-Expunged Drug, Do Not Renew!)1,000 Unit Tablet1,800 Units PO DAILY 05/17/13 Paroxetine-Expunged Drug, Do Not Renew! (Paxil-Expunged Drug, Do Not Renew!)10 Mg Odhaga31 Mg PO DAILY 05/17/13 Lactulose-Expunged Drug, Do Not Renew! (Cephalac-Expunged Drug, Do Not Renew!) 20 Gm/30 Ml Syrup30 Ml PO BID 01/20/13 Ferrous Sulfate-Expunged Drug, Do Not Renew! (Feosol-Expunged Drug, Do Not Renew !)325 Mg Pdljfp213 Mg PO BID 01/20/13 Potassium Chl-Expunged Drug, Do Not Renew! (A-TQG-Vmoaqqat Drug, Do Not Renew!) 10 Meq Tabsr40 Meq PO DAILY #30 TAB TAKE WITH FOOD 01/20/13 Trazodone-Expunged Drug, Do Not Renew! 50 Mg Blomzl34 Mg PO HS 01/20/13 Ursodiol-Expunged Drug, Do Not Renew! (Actigall--Expunged Drug, Do Not Renew!) 300 Mg Iwtobsd275 Mg PO BID Treatment and prevention of gallstones 01/20/13 ClonazePAM-Expunged Drug, Do Not Renew! 1 Mg Tablet1 Mg PO TID 01/20/13 History History of ENT Problems?: Yes HEENT History: Positive for:: Cataracts Denies:: Abnormal Airway Difficult Intubation Dysphagia Sinus Problem Denture Type: Full- Upper Hx of Heart Problems?: Yes Cardiovascular History: Positive for:: Edema Denies:: AICD Cardiac Surgery Congestive Heart Failure Hypertension Pacemaker Other Cardiac History: PATIENT NOT AN ACCURATE HYSTORIAN AT THIS TIME, EMERGENT PROCEDURE, INFORMATION GATHERED FROM H&P Hx of Respiratory Problem?: No Respiratory History: Positive for:: Hemoptysis Denies:: Tuberculosis Other Resp Pertinent History: PATIENT NOT AN ACCURATE HYSTORIAN AT THIS TIME, EMERGENT PROCEDURE, INFORMATION GATHERED FROM H&P Hx Neurologic Problems?: Yes Hx of GI Problems?: Yes Gastrointestinal History: Positive for:: Gastrointestinal Bleeding (upper GI bleeding) Heartburn Liver Disease (primary bilary cirrhosis) Rectal Bleeding Denies:: Hepatitis Hiatal Hernia Other GI Pertinent History: PATIENT NOT AN ACCURATE HYSTORIAN AT THIS TIME, EMERGENT PROCEDURE, INFORMATION GATHERED FROM H&P Hx of Problems?: No Female Hx: Denies:: Currently Hx Musculoskeletal Problems?: Yes Musculoskeletal History: Denies:: Back Injury Joint Replacement Musculoskeletal Trauma Hx of Psycho/Social Problems?: No Hx Surgeries?: Yes (Gallbladder, Hysterectomy ) Hx Any Other Health Problems?: No Other History: Positive for:: Hospitalization Denies:: Thyroid Disease History Blood Transfusions: Denies:: Blood Transfusions Hx Diabetes: No Other Pertinent History: PATIENT NOT AN ACCURATE HYSTORIAN AT THIS TIME, EMERGENT PROCEDURE, INFORMATION GATHERED FROM H&P Hx Alcohol Use: NoHx Substance Use: No Smoking Status: Former Smoker Have You Smoked inLast 12 mo: No Stop/Bang Treated for Sleep Apnea?: No (pt unable to answer, recall values used to get medical record) Do You Have a CPAP Machine?: No S-Snoring: Do You Snore Loudly: No T-Tired: feel tired, fatigued: No O-Obsered: Observed not breath: No P-Blood Pressure: treated: No B- Body Mass Index > 35 kg/m2: No A- Age over 50: Yes N- Neck Large Circumference: No G- Gender Male: No JOE Total Score: 0 Risk Assessment Category Category 1A: Patient has history of documented sleep apnea, and HAS NOT received any narcotic, sedative or anesthesia administration during this stay. Category 1B: Patient has history of documented sleep apnea, and HAS received any narcotic , sedative or anesthesia administration during this stay Category 2: Patient has SUSPECTED Obstructive Sleep Apnea, and HAS received any narcotic , sedative or anesthesia administration during this stay. Category 3: Patient has SUSPECTED Obstructive Sleep Apnea and HAS NOT received narcotic, sedative or anesthesia administration during this stay. Category 4: Outpatient in Procedural Areas with known sleep apnea or who screen positive for High Risk via the STOP/BANG questionnaire. Exam Exam Vital Signs Vital Signs Date Time Temp Pulse Resp B/P Pulse Ox O2 Delivery O2 Flow Rate FiO2 04/12/16 12:30 36.6 108 19 122/48 99 Room Air 04/12/16 08:30 36.7 104 18 109/50 100 Room Air General Appearance: No Acute Distress, Other (confused at baseline) HEENT/AIRWAY: MP 2, Neck Movement (FROM), Mouth Opening (3 FBMO) Lungs: Normal Air Movement Heart: Regular Rate/Rhythm Meds/Labs/Diagnostics Admission Meds Current Medications Vancomycin HCl 1250 mg/Dextrose/ Water 250 ml @ 166.667 mls/hr ONCE ONCE IV Last administered on 04/12/16 04:17; Start 04/11/16 at 21:50; Stop 04/11/16 at 23:19; Status DC Levofloxacin/ Dextrose 750 mg/ Premix 150 ml @ 100 mls/hr ONCE ONCE IV Last administered on 04/11/16 22:50; Start 04/11/16 at 21:50; Stop 04/11/16 at 23:19 ; Status DC Metronidazole/ Sodium Chloride/ Premix (Flagyl Inj/IV Premix) 100 ml @ 200 mls/ hr ONCE ONCE IV Last administered on 04/12/16 06:02; Start 04/11/16 at 21:50 ; Stop 04/11/16 at 22:19; Status DC Pantoprazole 40 mg 40 mg ONCE ONCE IVPUSH Last administered on 04/11/16 22:36 ; Start 04/11/16 at 21:55; Stop 04/11/16 at 21:56; Status DC Octreotide Acetate/Sodium Chloride (SandoSTATIN Inj/ Normal Saline) 100 ml @ 10 mls/hr Q10H IV Last administered on 04/12/16 09:05; Start 04/11/16 at 23:10 Octreotide Acetate 50 mcg 50 mcg ONCE ONCE IVPUSH Last administered on 23:54; Start 04/11/16 at 23:30; Stop 04/11/16 at 23:31; Status DC Erythromycin Lactobionate 250 mg/Sodium Chloride 105 ml @ 210 mls/hr ONCE ONCE IV Last administered on 04/12/16 00:28; Start 04/11/16 at 23:45; Stop at 00:14; Status DC Pantoprazole 80 mg/Sodium Chloride 100 ml @ 10 mls/hr Q10H IV Last administered on 04/12/16 09:05; Start 04/11/16 at 23:40 Lactated Ringer's 1,000 ml @ ud STK-MED ONCE IV Last administered on 01:39; Start 04/12/16 at 01:39; Stop 04/12/16 at 01:41; Status DC Lactated Ringer's 1,000 ml @ 120 mls/hr Q8H20M IV Last administered on 04:25; Start 04/12/16 at 03:05; Stop 04/12/16 at 04:47; Status DC Cefepime HCl/ Dextrose/Water (Maxipime Inj/ D5W Minibag Plus) 100 ml @ 25 mls/ hr Q12 IV Last administered on 04/12/16 09:06; Start 04/12/16 at 08:30 Pharmacy Consult (Pharmacist Managed Vancomcyin) 1 ea DAILY XX Last administered on 04/12/16t 09:04; Start 04/12/16 at 08:30 Labs Test 04/11/16 21:00 04/11/16 21:45 04/11/16 22:35 04/12/16 04:30 Activated Partial Thromboplast Time 26.7sec (22.8-33.0) Hold Blue Top Tube Received (Received) Magnesium Level 2.3mg/dL (1.6-2.6) Pro-B-Type Natriuretic Peptide 237.3pg/mL (0-738) Hold Red Top Tube Received (Received) Hold [place] Top Tube Received (Received) Acetaminophen Level 15.0ug/mL Rx (10-25) Urine Color Yellow (YELLOW) Urine Appearance Slightly cloudy Urine pH 6.0 (5.0-8.0) Urine Specific [place] 1.020 (1.003-1.035) Urine Protein Negativemg/dL (NEG,TRACE) Urine Glucose (UA) Negativemg/dL (NEGATIVE) Urine Ketones Tracemg/dL (NEGATIVE) Urine Occult Blood Trace (NEGATIVE) Urine Nitrite Negative (NEGATIVE) Urine Bilirubin Negative (NEGATIVE) Urine Urobilinogen Normalmg/dL (NORMAL) Urine Leukocyte Esterase Trace (NEGATIVE) Urine RBC 0-2/hpf (0-2) Urine WBC 6-10/hpf (0-5) Urine Epithelial Cells Occasional/hpf (NONE-MOD) Urine Crystals None seen (NONE SEEN) Urine Bacteria Many/hpf (NONE-FEW) Urine Hyaline Casts None/lpf (NONE) Urine Granular Casts None seen (NONE SEEN) Urine Waxy Casts None seen (NONE SEEN) Urine Red Blood Cell Casts None seen (NONE SEEN) Urine White Blood Cell Casts None seen (NONE SEEN) Urine Mucus None seen (None Seen) Urine Trichomonas None seen (NONE SEEN) Urine Yeast None (NONE SEEN) Urine Culture Reflexed Indicated Lactic Acid Level 1.9mmol/L (0.4-2.0) Ammonia 211ug/dL (18-53) Procalcitonin 0.07ng/mL (See Comment) White Blood Count 4.9th/mm3 (3.8-10.1) Red Blood Count 2.99mil/mm3 (3.90-5.20) Mean Corpuscular Volume 88.0fL (81-100) Mean Corpuscular Hemoglobin 30.1pg (27.0-35.0) Mean Corpuscular Hemoglobin Concent 34.2% (32.0-37.0) Red Cell Distribution Width 17.7% (12.3-15.4) Platelet Count 50bil/L (150-400) Neutrophils (%) (Auto) 91.5% (40-74) Lymphocytes (%) (Auto) 5.5% (14-46) Monocytes (%) (Auto) 2.6% (4-12) Eosinophils (%) (Auto) 0% (0-5) Basophils (%) (Auto) 0% (0-3) Prothrombin Time 13.1sec (8.1-12.5) Prothromb Time International Ratio 1.22ratio Sodium Level 142mEq/L (134-144) Potassium Level 4.5mEq/L (3.5-5.2) Chloride Level 109mEq/L (97-108) Carbon Dioxide Level 18mmol/L (18-29) Blood Urea Nitrogen 60mg/dL (8-27) Creatinine 0.87mg/dL (0.57-1.00) Estimat Glomerular Filtration Rate 90mL/min (>59) Glucose Level 164mg/dL (60-99) Calcium Level 8.1mg/dL (8.5-10.1) Total Bilirubin 1.5mg/dL (0.0-1.2) Aspartate Amino Transf (AST/SGOT) 25U/L (0-50) Alanine Aminotransferase (ALT/SGPT) 22U/L (0-32) Alkaline Phosphatase 63U/L (25-165) Troponin T 0.010ug/L (0.0-0.011) Total Protein 5.3g/dL (6.4-8.4) Albumin 2.5g/dL (3.4-5.0) Test 04/12/16 12:15 Hemoglobin 8.3g/dL (12.0-15.6) Hematocrit 24.3% (35.0-46.0) Plan Impression Patient chart reviewed, patient interviewed and anesthestic plan with risks, benefits, and alternatives discussed, and informed consent obtained. NPO Status: > 8 hrs ASA Physical Status: ASA3 Severe Disease (Upper GI Bleed) Anesthetic Plan: MAC Bene/Risks/Altern/Consents: Yes HP Complete Prior to Induction: Yes Robert Rivas MD Apr 12, 2016 15:19
--- NOTE | 2016-04-12 16:41 | PCM.ANEP2 ---
Post Anesthesia Evaluation ASA/CMS Post Anesthesia VS in Patient's Normal Range?: Yes Resp Stable; Airway Patent?: Yes CV Function & Hydration Stable: Yes Mental Status Recovered?: Yes Pain control Satisfactory?: Yes N/V Control Satisfactory?: Yes Robert Rivas MD Apr 12, 2016 16:41
--- NOTE | 2016-04-12 16:41 | PCM.ANEP1 ---
Post Anesthesia Phase 1 PACU Phase 1 Assessment Date of Service: Apr 12, 2016 Vital Signs Vital Signs Date Time Temp Pulse Resp B/P Pulse Ox O2 Delivery O2 Flow Rate FiO2 04/12/16 12:30 36.6 108 19 122/48 99 Room Air Anesthetic Administered: MAC Level of Alertness: Drowsy, not talking Pain: No Nausea or Vomiting: No Oxygen Delivery: Nasal Cannula Lungs: Normal Air Movement Dermatome Level: Full Sensation Robert Rivas MD Apr 12, 2016 16:41
--- NOTE | 2016-04-12 18:26 | NUR ---
P: Bleeding I: pt has had 4 dark burgundy liquid stools. EGD completed and no active bleeding noted. Started on ice chips and clear liquids. No nausea. Bilateral calves redness and warm to the touch. Redness marked per Dr. Torres request. Turned Q 2 hours but pt able to move herself. Pt pulls at lines and restraints on for pt safety. Fleming patent and draining karri urine. Incontinent x4 of large liquid burgundy stools. ST. Room air sats stable. Son at bedside. Pt very confused and does not follow commands. She is alert however and a little agitated at times. E: Stable S: Restraints on for pt safety. Bed alarm on. Frequent rounding.
--- NOTE | 2016-04-12 19:24 | ENDO ---
[address] [address] ENDOSCOPY PROCEDURE PATIENT: THUAN LANDA : 1935 MR#: [id number] ADMIT: 04/12/2016 JOB ID: [id number] PROCEDURE: Esophagogastroduodenoscopy. INDICATIONS: A 80-year-old female with upper GI bleeding and an unclear source based on our examination early this morning. EQUIPMENT: [id number] SEDATION: Monitored anesthesia as provided by Dr. Robert Rivas. COMPLICATIONS: None identified. PROCEDURE INFORMATION: After the risks and benefits were explained, written and verbal informed consent was obtained, the patient was brought into the endoscopy suite and placed into the left lateral decubitus position. Sedation was achieved using the above-stated medications with the addition of oxygen via nasal cannula. The scope was introduced into the mouth through the bite block and advanced under direct visualization through the oropharynx, esophagus, stomach, and onto the second portion of the duodenum. The scope was slowly withdrawn. Retroflexed views were accomplished in the stomach. The stomach was decompressed. The scope removed from the patient who tolerated the procedure well. FINDINGS: 1. Duodenum. No new or old blood. No bleeding focus identified. 2. Stomach: No significant new or old blood present. All of the blood we had noted from last night has cleared the stomach. The patient had a gastropathy throughout consistent with portal hypertension. No obvious gastric varices, even in retroflexed views. There was an inflamed gastric cardia nodule. No nipple sign, no adherent clot to suggest the source for blood loss. I did not uncover any clots or any high-risk stigmata for recent Dieulafoy's. The patient, however, did continue to demonstrate an ulcerated apex to the large polypoid structure in the distal body, proximal antrum. This was irrigated quite heavily but did not demonstrate a nonbleeding visible vessel and there was no suggestion of any ongoing leakage. 3. Esophagus: No change from the findings last night. Grade 2 distal esophageal varices with scattered superficial vascularity and erythema but no stigmata of recent bleeding. Photographs were taken. There was some residual alicea-colored material in the distal esophagus. ENDOSCOPIC DIAGNOSES: 1. Spontaneous hemostasis confirmed. 2. Bleeding source most likely appears to be the ulcerated polypoid structure (previously described as a leiomyoma). 3. Portal hypertensive gastropathy. 4. Inflamed gastric cardia nodule. 5. Grade 2 esophageal varices. RECOMMENDATIONS: 1. I suspect the intermittent use of Aleve may have something to do with the ulcerated appearance to the mucosa on this polyp. I would recommend she continue lifelong abstinence from NSAIDs. I would recommend the PPI drip continue until tomorrow morning and then the patient be converted over to b.i.d. oral therapy. B.i.d. oral therapy should continue for perhaps about 10 days and then I would recommend reducing down to Protonix 40 mg once daily indefinitely. 2. I think the octreotide can be discontinued tomorrow morning. 3. I would recommend the patient receive another four days of antibiotic therapy in light of her underlying portal hypertension and cirrhosis. 4. The patient can be on a full liquid diet this afternoon. If she remains clinically stable, I have written for advancement to 2 g sodium diet tomorrow morning. 5. The patient has been having further melena and I think this is just clearing out the GI tract from the bleeding that occurred yesterday. All of that said, blood count is still fairly low and she is mildly tachycardic even at baseline. I think that another unit of packed RBCs would be quite reasonable.
[2016-04-13] VITALS (8 sets, daily range): BP systolic 16–125; BP diastolic 36–56; PULSE 93–110; RESP 18–23; O2SAT 97–100
[2016-04-13] MEDS: Pantoprazole Inj 80 MG in 0.9% Sodium Chloride 80 ML IV SCH (03:15)
[2016-04-13] MEDS: Octreotide Inj 500 MCG in 0.9% Sodium Chloride 99 ML IV SCH (05:10)
--- NOTE | 2016-04-13 05:45 | NUR ---
Mentation/GI/Skin Pt continues to remain restless, disoriented, confused, impulsive, and unable to follow commands. When asked by a family member the pt did not know her middle name and when asked by RN pt did not know the date or where they were. At times pt was word searching and unable to communicate what they wanted. Pt has been incontinent of 2 black, tarry stools with bessy blood. Pt continues to tolerate PO liquids with no nausea, vomiting, or choking. Pt's lower legs bilaterally continue to be red, edematous, and warm to the touch. Pt is unable to feel touch in the area of the lower legs where the redness and swelling are dominant. Pt was able to feel touch in the feet bilaterally and said that it tickled. The redness on the legs has remained stable and has not spread past the margins on the pt's legs marked with black marker. Skin under pannus is now open with minimal sero-sanguineous drainage. Bacitracin was applied to open skin and a dressing of gauze with bio-occlusive is covering the site. Octreotide was DC'd this AM per paper chart orders. Pt continues to be in restraints due to pulling at lines.
[2016-04-13] MEDS: Pantoprazole 40 mg ER24 Tablet PO SCH ×2 (08:01→17:05)
[2016-04-13] MEDS: Cefepime Inj 2,000 MG in Dextrose 5% Minibag Plus 100 ML IV SCH (08:11)
[2016-04-13 09:18] LABS: BASOPHILS % (AUTO) 0.1 % (0-3); EOSINOPHILS % (AUTO) 0.3 % (0-5); MONOCYTES % (AUTO) 10.3 % (4-12); Mean Corpuscular Hemoglobin 29.4 pg (27.0-35.0); Mean Corpuscular Volume 90.7 fL (81-100); NEUTROPHILS % (AUTO) 80.8 % (40-74); Platelet Count 62 bil/L (150-400)
[2016-04-13] MEDS ORDERED: KLO1T PO (10:26)
[2016-04-13] MEDS ORDERED: TRAZ-115 PO (10:26)
[2016-04-13] MEDS ORDERED: SPIR100T3 PO (10:26)
[2016-04-13] MEDS ORDERED: URSO300C2 PO (10:27)
[2016-04-13] MEDS: Vancomycin Dose per Pharmacist XX SCH (10:34)
--- NOTE | 2016-04-13 11:46 | NUR ---
Wound Care [facility] Received wound care eval for wounds under pannus fold. Patient assessed. Per son Harsha who was present during treatment, patient mental status significantly improved since yesterday, however not yet back to baseline. Patient follows most commands but with noted confusion intermittently throughout treatment. Patient with significant redness and warmth to bilateral LE, however improved from original black marked erythema. Patient with bruising throughout body, significant to posterior right leg, bilateral knees, and bilateral arms. Patient reports history of frequent falls, however son states he feels falls she refers to happened several months ago. MDs aware of bruising and feel related to inc NSAID use recently. Patient with superficial wounds skin fold to left side of pannus. 3 primary open areas noted. Left groin measures 7.3cm W x 0.4cm L x <0.1cm D. Wound with bright red bloody base and bleeds easily. Left lower abdomen measures 2.7cm W x 0.7cm L x 0.1cm D with approx 10% fibrous base and 90% bleeding red base. Left side wound measures 13cm W x 0.7cm L x <0.1cm D with 100% red bleeding base. Patient reports wounds tender to touch. Cleaned all areas, and entire skin fold, with normal saline and patted dry. Applied bacitracin to open areas. Covered left groin and lower abdominal wounds with folded 4x4 secured with abdominal fold. Covered lateral wound with 4x4s and tegaderm to secure. Nursing to change daily and as needed and wound care to follow as needed.
--- NOTE | 2016-04-13 13:27 | PCM.PNMED ---
Subjective Date of Service Apr 13, 2016 Subjective Gastroenterology Progress Note Patient appears much more comfortable today. She denies abdominal pain, nausea, vomiting, diarrhea, hematemesis, or melena. She denies fevers or chills. Exam Vital Signs Vital Sign - Last Date Time Temp Pulse Resp B/P Pulse Ox O2 Delivery O2 Flow Rate FiO2 04/13/16 12:36 36.7 93 19 121/42 98 Room Air 04/12/16 03:40 2 Intake and Output 04/12/16 04/12/16 04/13/16 Cumulative From/Thru 15:00 23:00 07:00 04/11/16 20:58 - 04/13/16 05:30 Intake Total 1349 ml 2068 ml 6795 ml Output Total 450 ml 950 ml 2250 ml Balance 899 ml 1118 ml 4545 ml Intake Oral 50 ml 610 ml 660 ml IV Total 1299 ml 1458 ml 5585 ml Autotransfusion 300 ml Packed Cells 250 ml Output Urine Total 450 ml 950 ml 2250 ml # Bowel Movements 4 2 6 Exam General: Alert, Oriented to place and person but not time, No Acute Distress. Head: Normocephalic, atraumatic. External ears normal. Eyes: PERRLA, EOMI. Anicteric sclerae. Mouth: Mouth Normal, Mucous Membranes Moist/[place] Neck: Neck supple with full range of motion. Chest & Lungs: Clear to auscultation bilaterally with no crackles, wheezes, or rhonchi. Cardiovascular: Tachycardic, Normal S1, Normal S2, No Murmurs/Rubs/Gallops Abdomen: Non-tender, Non-distended, No masses, Normoactive bowel tones, Soft Extremities: Bilateral severe lower extremity pitting edema with erythema and warmth on legs Neurological: Grossly Neurologically Intact, Normal Speech Lab and Diagnostics Result Diagram: 04/13/1630904/13/16 031 Assessment & Plan Patient is a 80 year old female with history of primary biliary cirrhosis, gastric leiomyoma, chronic anemia, GERD, chronic hepatic encephalopathy on lactulose, portal gastropathy, and history of variceal bleed s/p banding who was brought to the ED by EMS due to severe melena and increased confusion of unknown onset, last seen normal two days prior to admission. Acute upper GI bleed - Pt with hx of esophageal varices s/p banding, portal gastropathy and Dieulafoy 's lesion, and GERD presents with melena and hematemesis. Family reports she had been taking excessive naproxen. EGD showed bleeding from an ulcerated polypoid structure (likely her leiomyoma), which had stopped bleeding. - Recommend lifetime abstinence from NSAIDs. - Discontinue Octreotide drip - Protonix 40 mg BID for 10 days, then 40 mg daily indefinitely - 2g sodium diet Acute on chronic iron deficiency anemia. Improved. - Hb 8.5 on admission, dropped to 7 in 2 hours. Improved to 9 after transfusion but has been slowly dropping again. Baseline Hb appears to be 9-10. - Continue to trend H&H - Continue home ferrous sulfate Altered mental status, acute. Present on admission. Resolving. - Likely secondary to acute GI bleed and acute infection. Her mental status continues to improve with stabilization of the bleed and treatment of the UTI and cellulitis. She remains slightly confused however. - Will start lactulose low dose. Chronic lower extremity edema with bilateral cellulitis - Restart spironolactone and Lasix Primary Biliary Cirrhosis - Continue home ursodiol. Hold nadolol until blood pressure is stable on restarted diuretics. - Recommend the patient receive another 3 days of antibiotic therapy in light of her underlying portal hypertension and cirrhosis. GERD - Protonix 40 mg BID for 10 days, then 40 mg daily indefinitely VTE Mechanical Devices: Intermittant Pneumatic CD Resuscitation Status: DNR/DNI:Do Not Resuscitate/Intubate Attending Statement Patient seen and examined. Agree with assessment and plan as described by Dr Hartley. No recurrent bleeding. Mental status has improved but not quite to baseline yet. Would consider one more unit of pRBC's. Hold nadolol for now. In light of bilateral HARJEET and what appears to be cellulitis, would be inclined to restart 40mg lasix and 100mg aldactone daily. Patient can continue 2 gram sodium diet. Continue oral PPI for now. Octreotide stopped this morning. Antibiotics for as long as necessary for cellulitis. Will continue to follow. Alfred Hartley Apr 13, 2016 13:27 Bentley Shine MD Apr 13, 2016 22:03
--- NOTE | 2016-04-13 14:07 | NUR ---
Confusion Pt. is still on soft wrist restraints to prevent her from pulling her IV and Fleming catheter. She was incontinent of 1 black loose stool this morning. She was impulsive and confused. She pulled her Fleming catheter as soon as her soft wrist restraints were removed during routine care. Family was in room most of the time. Family reported her mentation had improved but not back to baseline yet.
--- NOTE | 2016-04-13 16:47 | NUR ---
Soft wrist restraints Discontinued soft wrist restraints at 1600 today. Pt. showed improvement in her mentation and attention span. She was still mildly confused but was able to make logical conversation.
--- NOTE | 2016-04-13 18:03 | NUR ---
Social Work Note: Continued Discharge Planning Data& Assessment: SW met with pt and pt family at bedside to discuss discharge planning, SW role explained. Pt son would like pt to go to rehab as pt is far from her baseline strength and mobility. Pt son provided preferences for [facility] in [place] [facility] in [place]. SW requested referral be faxed. Pt and pt son deny any other needs at this time. SW to continue to follow. Plan: Anticipated discharge to SNF pending [facility] Authorization and acceptance. [facility] and [facility] reviewing pt. Pt and pt son deny any other needs at this time. SW to continue to follow. BRIT Lewis
--- NOTE | 2016-04-13 18:24 | PCM.PNMED ---
Subjective Date of Service Apr 13, 2016 Subjective Patient is a 80 year old female with history of primary biliary cirrhosis, gastric leiomyoma, chronic anemia, GERD, chronic hepatic encephalopathy on lactulose, portal gastropathy, and history of variceal bleed s/p banding presented to ED by EMS due to severe melena and increased confusion of unknown onset, last seen normal two days ago. Admitted for treatment of upper GI bleed, melena, bilateral lower leg swelling, altered mental status Overnight: Nursing reported two episodes of dark tary stools with bessy blood. Altered mental status. Patient tolerated PO intake. Today: Patient responds to questions better than at admission. She stated that she is feeling better. Complains of bilateral lower leg pain, stated she has not been unable to get up out of bed due to pain in legs and not feeling steady on her feet.Daughter present and she stated that she looks much better than she did yesterday ROS negative except for mentioned above. Exam Vital Signs Vital Sign - Last Date Time Temp Pulse Resp B/P Pulse Ox O2 Delivery O2 Flow Rate FiO2 04/13/16 03:51 36.6 110 20 16/55 100 Room Air 04/12/16 03:40 2 Intake and Output 04/12/16 04/12/16 04/13/16 Cumulative From/Thru 15:00 23:00 07:00 04/11/16 20:58 - 04/13/16 05:30 Intake Total 1349 ml 2068 ml 6795 ml Output Total 450 ml 950 ml 2250 ml Balance 899 ml 1118 ml 4545 ml Intake Oral 50 ml 610 ml 660 ml IV Total 1299 ml 1458 ml 5585 ml Autotransfusion 300 ml Packed Cells 250 ml Output Urine Total 450 ml 950 ml 2250 ml # Bowel Movements 4 2 6 Exam General: Alert, Oriented to place and person but not time, No Acute Distress. Head: Normocephalic, atraumatic. External ears normal. Eyes: PERRLA, EOMI. Anicteric sclerae. Mouth: Mouth Normal, Mucous Membranes Moist/[place] Neck: Neck supple with full range of motion. Chest & Lungs: Clear to auscultation bilaterally with no crackles, wheezes, or rhonchi. Cardiovascular: Tachycardic, Normal S1, Normal S2, No Murmurs/Rubs/Gallops Abdomen: Non-tender, Non-distended, No masses, Normoactive bowel tones, Soft Extremities: Bilateral severe lower extremity pitting edema with erythema and warmth on legs aprox 15 cm below knee Neurological: Grossly Neurologically Intact, Normal Speech Lab and Diagnostics Result Diagram: 04/12/16204904/13/16309 Assessment & Plan Patient is a 80 year old female with history of primary biliary cirrhosis, gastric leiomyoma, chronic anemia, GERD, chronic hepatic encephalopathy on lactulose, portal gastropathy, and history of variceal bleed s/p banding who was brought to the ED by EMS due to severe melena and increased confusion of unknown onset, last seen normal two days ago. 1. Acute upper GI bleed. Present on admission. - Pt with hx of esophageal varices s/p banding, portal gastropathy and Dieulafoy 's lesion, and GERD presents with melena and hematemesis. Source of bleed could be related to any of her multiple conditions and she appears to be actively bleeding, so an urgent GI consult was made and and EGD is scheduled shortly. Family states pt may have been taking large amounts of NSAIDs and Tylenol. - Octreotide drip - Protonix bolus and drip - Trend H&H q4h until stable - Transfuse for Hb <7. - Crossmatch 2U PRBCs. - Holding nadolol until taking PO -GI consulted we appreciate their time and expertise 2. Acute on chronic iron deficiency anemia. Present on admission. - Hb 8.5 on admission, dropped to 7 in 2 hours. Baseline Hb appears to be 9-10. - Transfuse 2U PRBCs stat - Continue to trend H&H - Hold home ferrous sulfate 3. Urinary tract infection, acute. Present on admission. - UA showed 6-10 WBC, trace LE, many bacteria. - Urine/blood cultures pending - Continue cefepime for coverage of UTI and cellulitis 4. Possible bilateral lower extremity cellulitis. Present on admission. - Pt has a history of lower extremity edema but her son states that the erythema on bilateral legs is new, and the edema is worse. - ID consulted we appreciate their time and recommendations, unlikely to be cellulitis, recommend continue cefepime - Elevate legs - Hold home Lasix and spironolactone, restart when stable. 5. Altered mental status, acute. Present on admission. - Pt has history of hepatic encephalopathy, likely not taking lactulose for 1-2 days. However, her confusion may be due to her acute bleed, UTI, or cellulitis. Will treat underlying problems, continue to monitor. Consider brain imaging if confusion does not improve with resolution of other problems. - defer starting home lactulose to GI. Holding as per GI at this time. Consideration to rifaximin when taking PO 6. Chronic thrombocytopenia. Present on admission. - Plt 81 on admit. Plt ranged around 45-70 in 2013. - Continue to monitor CBC 7. Hyperglycemia, acute. Present on admission. - BG 151 on admit. - A1c ordered - Humalog low dose correctional scale. 8. Depression/Anxiety - Continue home paroxetine, trazodone, and clonazepam when taking PO 9. Primary Biliary Cirrhosis - Hold home ursodiol 10. Other Chronic Conditions - GERD - Gastric leiomyoma - Osteoporosis 1. I suspect the intermittent use of Aleve may have something to do with the ulcerated appearance to the mucosa on this polyp. I would recommend she continue lifelong abstinence from NSAIDs. I would recommend the PPI drip continue until tomorrow morning and then the patient be converted over to b.i.d. oral therapy. B.i.d. oral therapy should continue for perhaps about 10 days and then I would recommend reducing down to Protonix 40 mg once daily indefinitely. 2. I think the octreotide can be discontinued tomorrow morning. 3. I would recommend the patient receive another four days of antibiotic therapy in light of her underlying portal hypertension and cirrhosis. 4. The patient can be on a full liquid diet this afternoon. If she remains clinically stable, I have written for advancement to 2 g sodium diet tomorrow morning. 5. The patient has been having further melena and I think this is just clearing out the GI tract from the bleeding that occurred yesterday. All of that said, blood count is still fairly low and she is mildly tachycardic even at baseline. I think that another unit of packed RBCs would be quite reasonable. VTE Mechanical Devices: Intermittant Pneumatic CD Resuscitation Status: DNR/DNI:Do Not Resuscitate/Intubate Attending Statement The patient was seen and examined together with Dr. Teresa on 04/13/2016 and I agree with the history, exam and plan as outlined in the note above. . JABARI TERESA DO Apr 13, 2016 07:33 Adrian Gonzalez MD Apr 18, 2016 14:35
[2016-04-13] MEDS ORDERED: Linezolid Inj 600 MG in IV Premix 1 EACH IV SCH (20:30)
--- NOTE | 2016-04-13 20:52 | CONS ---
[address] [address] CONSULTATION REPORT PATIENT: THUAN LANDA : 1935 MR#: [id number] ADMIT: 04/12/2016 JOB ID: [id number] DATE OF SERVICE: 04/13/[address] Francois for this timely consult. REASON FOR CONSULTATION: Rule out bilateral lower extremity cellulitis. HISTORY OF PRESENT ILLNESS: The patient is a 80-year-old woman with a complex past medical history who was admitted here April 12. Her medical history is notable for primary biliary cirrhosis with gastric leiomyoma as well as cirrhosis, thrombocytopenia, portal gastropathy, esophageal varices and chronic hepatic encephalopathy. The patient has a history of GI bleeds in the past. She was admitted to this facility yesterday April 12 with melena and confusion. She lives at the [facility] and her family was notified that her confusion was increasing and at the same time it was noted she was having black tarry stools and, for that reason, she was brought to the hospital and admitted. It was notable that she had been to the ED just a couple of days before that for bilateral lower extremity swelling which her sons have told me is due to the fact she was sleeping in a recliner rather than her bed with her legs hanging down which led to increased swelling. She was told during her ED visit to keep her legs elevated, but then developed a change in mental status as well as the black tarry stools, came back to the ED and was admitted. The patient is not a great historian because of some underlying baseline hepatic encephalopathy, but she tells us this afternoon she has not had any fevers, chills or sweats. She states that her legs are not painful and that they are often somewhat red though more so currently. She and her confirm that she has been sleeping on a recliner lately because of weakness and just difficulty getting all the way into bed so she has been sleeping with her legs down rather than up. PAST MEDICAL HISTORY: 1. Primary biliary cirrhosis with gastric leiomyoma. a. Cirrhosis. b. Splenomegaly. c. Caput medusa. d. Chronic thrombocytopenia. e. Iron-deficiency anemia. f. Hepatic encephalopathy. g. Portal gastroscopy and esophageal varices. h. Recurrent upper GI bleed. 2. Gastroesophageal reflux disease. 3. Osteoporosis. 4. Depression and anxiety. 5. Status post cholecystectomy and hysterectomy. SOCIAL HISTORY: The patient is a cigarette smoker who quit 31 years ago in 1984. She has never been an alcohol consumer and does not use illicit drugs. She lives at the [facility] for the last year and a half but she has a very motivated and concerned family who live in this area. FAMILY HISTORY: Negative for tuberculosis as well as no family history of inflammatory bowel disease. REVIEW OF SYSTEMS: Was done. As noted, the patient is a little bit encephalopathic perhaps, but she denies significant headache, sinus pain, sore throat, sores in the mouth, cough, shortness of breath or chest pain. She has no abdominal pain this afternoon. She has not had genitourinary symptoms and she has not noticed any neurologic symptoms. As noted, her legs are quite red below the knee but not painful to her. PHYSICAL EXAMINATION: Reveals an afebrile woman who has been afebrile since admission. Temperature 36.7 right now, pulse in the 90s, respiratory rate 19, blood pressure 121/42. She is saturating 98% on room air. Examination of the head reveals no trauma. Sinuses nontender. Conjunctivae are benign. Oral cavity without thrush or hairy leukoplakia. The neck is without adenopathy. Lungs fairly clear. Cardiac tones: Regular rate and rhythm. The abdomen is notable for left upper extremity bluish discoloration with some venous structures present within it which appears to be a caput medusa. The spleen is palpable about 3 cm below the left costal margin. I cannot palpate the liver. There is perhaps some minimal ascites though I am not certain about that either. The patient does have a Fleming catheter. The extremities are notable for deeply erythematous changes of the lower extremities below the knee and the ankle. This inflammatory change which looks like cellulitis or severe venous stasis is symmetrical and there are no bullae or evidence of skin breakdown. The legs are slightly warm and really not tender at all this afternoon. The feet are involved in this process. Neurologically, the patient can move her extremities but she is quite weak. When she moves her legs, she has no increase in pain in the erythematous areas of her lower legs. There is overall about 2+ edema in the lower extremities. LABORATORIES: Include white count of 6700, creatinine 0.89. LFTs normal. Albumin 1.5. Procalcitonin 0.07. Urine white cells 6-10. Tylenol level is 15 on admission. MRSA screen is negative. Blood cultures negative. Urine is growing gram-negative rods and urinalysis had only 6-10 white cells. Chest x-ray: No infiltrate though there are some chronic interstitial changes. IMPRESSION: I do not think the patient has cellulitis. True bilateral symmetrical cellulitis is extremely rare, and I do not think that is the case here. The patient is not febrile, does not have a significant leukocytosis or left shift, is not toxic and the legs are really not as warm or as tender as one would expect from a raging bilateral streptococcal cellulitis. This case was discussed at the bedside with Dr. Shine of . I note that the patient is on cefepime and this apparently was started as part of a prophylaxis regimen in a patient with known cirrhosis, varices and a recent gastrointestinal bleed. The duration of antibiotic prophylaxis in this circumstance will be up to GI but is usually 5-7 days. This cefepime regimen that has been chosen will, of course, treat MSSA as well as group A strep though I think the legs are not involved with either of these pathogens nor any other bacterial process. The bacteria in the urine likely represents asymptomatic bacteriuria as well, but it will inadvertently be treated with the cefepime and I note someone has already given a dose of fosfomycin as well which I think is overkill here. RECOMMENDATIONS: 1. I would discontinue linezolid as there is no indication for it at this point. 2. I would continue cefepime or ceftriaxone as prophylaxis in this circumstance. 3. ID will sign off at this point, as there is no evidence for ongoing infection, but I thank you for this consult.
[2016-04-13] MEDS: cefTRIAXone Inj 2,000 MG in Dextrose 5% Minibag Plus 50 ML IV SCH (21:04)
[2016-04-13] MEDS ORDERED: 0.9% Sodium Chloride 250 ML ONE (21:10)
[2016-04-13] MEDS ORDERED: Vancomycin Serum Trough XX ONE (23:00)
[2016-04-14 04:10] VITALS: BP 115/52; PULSE 96; RESP 18; O2SAT 99
--- NOTE | 2016-04-14 05:51 | NUR ---
Skin integrity/Telemetry Repositioned q2hrs for comfort and skin integrity. Denies resp. distress, shortness of breath, and discomfort. No n/v/d,or gi upset observed or reported. Telemetry SR PVCs HR 101. Denies chest pain. SPO2 97% RA.
[2016-04-14] MEDS: Pantoprazole 40 mg ER24 Tablet PO SCH ×2 (06:11→16:49)
[2016-04-14 08:50] VITALS: BP 124/47; PULSE 96; RESP 21; O2SAT 100
[2016-04-14] MEDS: cefTRIAXone Inj 2,000 MG in Dextrose 5% Minibag Plus 50 ML IV SCH ×2 (08:56→21:23)
[2016-04-14] MEDS: Lactulose 20 Gm/30 mL 30 mL Syrup PO SCH (08:56)
--- NOTE | 2016-04-14 09:28 | NUR ---
Faxed referral to [facility] per SPEECH AND HEARING DIRECTOR
[2016-04-14 09:58] LABS: BASOPHILS % (AUTO) 0.3 % (0-3); EOSINOPHILS % (AUTO) 1.5 % (0-5); MONOCYTES % (AUTO) 10.4 % (4-12); Mean Corpuscular Hemoglobin 29.7 pg (27.0-35.0); Mean Corpuscular Volume 91.1 fL (81-100); NEUTROPHILS % (AUTO) 78.2 % (40-74); Platelet Count 65 bil/L (150-400)
--- NOTE | 2016-04-14 10:31 | NUR ---
Evaluation completed. Please go to "Notes" then click on "Assessments and Notes" (bottom left corner of screen). Then select appropriate discipline tab on top of screen.
--- NOTE | 2016-04-14 12:47 | PCM.PNMED ---
Subjective Date of Service Apr 14, 2016 Subjective Pt states she feels well today. No complaints today. Exam Vital Signs Vital Sign - Last Date Time Temp Pulse Resp B/P Pulse Ox O2 Delivery O2 Flow Rate FiO2 04/14/16 08:50 37.0 96 21 124/47 100 Room Air 04/12/16 03:40 2 Intake and Output 04/13/16 04/13/16 04/14/16 Cumulative From/Thru 15:00 23:00 07:00 04/11/16 20:58 - 04/14/16 06:35 Intake Total 2001 ml 920 ml 9716 ml Output Total 900 ml 700 ml 3850 ml Balance 1101 ml 220 ml 5866 ml Intake Oral 1260 ml 870 ml 2790 ml IV Total 741 ml 50 ml 6376 ml Autotransfusion 300 ml Packed Cells 250 ml Output Urine Total 900 ml 700 ml 3850 ml # Bowel Movements 6 3 15 Exam General: Alert, Oriented to place and person but not time, No Acute Distress. Head: Normocephalic, atraumatic. External ears normal. Eyes: PERRLA, EOMI. Anicteric sclerae. Mouth: Mouth Normal, Mucous Membranes Moist/[place] Neck: Neck supple with full range of motion. Chest & Lungs: Clear to auscultation bilaterally with no crackles, wheezes, or rhonchi. Cardiovascular: Tachycardic, Normal S1, Normal S2, No Murmurs/Rubs/Gallops Abdomen: Non-tender, Non-distended, No masses, Normoactive bowel tones, Soft Extremities: Bilateral lower extremity pitting edema with erythema and warmth on legs; left leg improving significantly. Neurological: Grossly Neurologically Intact, Normal Speech Lab and Diagnostics Result Diagram: 04/14/16 0945 04/14/16 0315 Assessment & Plan Patient is a 80 year old female with history of primary biliary cirrhosis, gastric leiomyoma, chronic anemia, GERD, chronic hepatic encephalopathy on lactulose, portal gastropathy, and history of variceal bleed s/p banding who was brought to the ED by EMS due to severe melena and increased confusion of unknown onset, last seen normal two days prior to admission. Acute upper GI bleed. Resolved. - Pt with hx of esophageal varices s/p banding, portal gastropathy and Dieulafoy 's lesion, and GERD presents with melena and hematemesis. Family reports she had been taking excessive naproxen. EGD showed bleeding from an ulcerated polypoid structure (likely her leiomyoma), which had stopped bleeding. - Recommend lifetime abstinence from NSAIDs. - Discontinued Octreotide drip - Protonix 40 mg BID for 10 days, then 40 mg daily indefinitely - 2g sodium diet Acute on chronic iron deficiency anemia. Improving - Hb 8.5 on admission, dropped to 7 in 2 hours. Improved to 9 after transfusion but has been slowly dropping again. Baseline Hb appears to be 9-10. Her Hb is now improving from 7.9 to 8.7 spontaneously. - Continue to trend H&H - Continue home ferrous sulfate Altered mental status, acute. Present on admission. Resolved - Likely secondary to acute GI bleed and acute infection. Her mental status continues to improve with stabilization of the bleed and treatment of the UTI and cellulitis. - Continue lactulose low dose. Chronic lower extremity edema - Restarted spironolactone Primary Biliary Cirrhosis - Continue home ursodiol. Hold nadolol until blood pressure is stable on restarted diuretics. - Recommend the patient receive another 3 days of antibiotic therapy in light of her underlying portal hypertension and cirrhosis. GERD - Protonix 40 mg BID for 10 days, then 40 mg daily indefinitely VTE Mechanical Devices: Intermittant Pneumatic CD Resuscitation Status: DNR/DNI:Do Not Resuscitate/Intubate Attending Statement Patient seen and examined. Agree with assessment and plan as described by Dr Hartley. No recurrent bleeding. Being treated for bilater HARJEET. Continue 2g sodium diet, lasix 40mg/d, and aldactone 100mg/d. Much improved mental status. Would titrate lactulose to 2 and at most 3 bm/d. Agree with restarting the ursodeoxycholic acid. Alfred Hartley Apr 14, 2016 12:47 Bentley Shine MD Apr 14, 2016 22:43
[2016-04-14 16:16] VITALS: BP 127/60; PULSE 104; RESP 18; O2SAT 100
--- NOTE | 2016-04-14 18:47 | NUR ---
Shift Notation Redness on legs reduced from marked area. Legs continue to display non-pitting edema. Telemetry SR 100. Pt mentation is improving this shift per family. Alert and oriented x3. Pt up with PT during shift. Pt able to tolerate sitting in chair for approximately 1 hour to eat dinner.
[2016-04-14 20:10] VITALS: BP 125/53; PULSE 107; RESP 24; O2SAT 97
--- NOTE | 2016-04-14 20:37 | PCM.PNMED ---
Subjective Date of Service Apr 14, 2016 Subjective Patient is a 80 year old female with history of primary biliary cirrhosis, gastric leiomyoma, chronic anemia, GERD, chronic hepatic encephalopathy on lactulose, portal gastropathy, and history of variceal bleed s/p banding presented to ED by EMS due to severe melena and increased confusion of unknown onset, last seen normal two days ago. Admitted for treatment of upper GI bleed, melena, bilateral lower leg swelling, altered mental status. Hospital Day 4 Overnight: No events reported Today: She stated that she is feeling better. Family present reports this is the best she has looked since she came to the hospital. Patient stated she is unable to transfer her self from bed to chair without much assistance. Patient denies shortness of breath, chest pain, pain with catheter, nausea, vomiting, diarrhea. ROS negative except for mentioned above. Exam Vital Signs Vital Sign - Last Date Time Temp Pulse Resp B/P Pulse Ox O2 Delivery O2 Flow Rate FiO2 04/14/16 04:10 37.0 96 18 115/52 99 Room Air 04/12/16 03:40 2 Intake and Output 04/13/16 04/13/16 04/14/16 Cumulative From/Thru 15:00 23:00 07:00 04/11/16 20:58 - 04/14/16 06:35 Intake Total 2001 ml 920 ml 9716 ml Output Total 900 ml 700 ml 3850 ml Balance 1101 ml 220 ml 5866 ml Intake Oral 1260 ml 870 ml 2790 ml IV Total 741 ml 50 ml 6376 ml Autotransfusion 300 ml Packed Cells 250 ml Output Urine Total 900 ml 700 ml 3850 ml # Bowel Movements 6 3 15 Exam General: Alert, Oriented to place and person and time, No Acute Distress. Head: Normocephalic, atraumatic. External ears normal. Eyes: PERRLA, EOMI. Anicteric sclerae. Mouth: Mouth Normal, Mucous Membranes Moist/[place] Neck: Neck supple with full range of motion. Chest & Lungs: Clear to auscultation bilaterally with no crackles, wheezes, or rhonchi. Cardiovascular: Tachycardic, Normal S1, Normal S2, No Murmurs/Rubs/Gallops Abdomen: Non-tender, Non-distended, No masses, Normoactive bowel tones, Soft Extremities: Bilateral lower extremity pitting edema with erythema improved Neurological: Grossly Neurologically Intact, Normal Speech Lab and Diagnostics Result Diagram: 04/13/16 0310 04/14/16 031 X-Rays, CTs and MRIs Brain CT IMPRESSION: 1. No acute intracranial findings. 2. Mild findings likely associated with chronic microvascular ischemic change. Dictated by: Marcia Petty M.D. on 04/12/2016 at 7:03 Approved by: Marcia Petty M.D. on 04/12/2016 at 7:19 Chest XR IMPRESSION: Chronic interstitial changes. No acute pulmonary process. Dictated by: Teri De Los Santos M.D. on 04/11/2016 at 21:56 Approved by: Teri De Los Santos M.D. on 04/11/2016 at 21:56 Assessment & Plan Patient is a 80 year old female with history of primary biliary cirrhosis, gastric leiomyoma, chronic anemia, GERD, chronic hepatic encephalopathy on lactulose, portal gastropathy, and history of variceal bleed s/p banding presented to ED by EMS due to severe melena and increased confusion of unknown onset, last seen normal two days ago. Admitted for treatment of upper GI bleed, melena, bilateral lower leg swelling, altered mental status. Hospital Day 4 1. Acute upper GI bleed. Present on admission. Resolved - Pt with hx of esophageal varices s/p banding, portal gastropathy and Dieulafoy 's lesion, and GERD presents with melena and hematemesis. Source of bleed could be related to any of her multiple conditions and she appears to be actively bleeding, so an urgent GI consult was made and and EGD is scheduled shortly. Family states pt may have been taking large amounts of NSAIDs and Tylenol. - Protonix 40 mg PO BID -GI consulted we appreciate their time and expertise 2. Acute on chronic iron deficiency anemia. Present on admission. stable - Hb 8.5 on admission, dropped to 7 in 2 hours. Baseline Hb appears to be 9-10. transfuse 2U PRBC on admission - Hb today 8.7 - Continue to trend H&H - Hold home ferrous sulfate 3. Urinary tract infection, acute. Present on admission. - UA showed 6-10 WBC, trace LE, many bacteria. - Urine/blood cultures positive for gram - rods, + for Klebsiella Pneumoniae - Continue cefepime for coverage of UTI 4. Chronic Lower extremity Edema. Present on admission. improving - Pt has a history of lower extremity edema but her son states that the erythema on bilateral legs is new, and the edema is worse. - Continue spironolactone 100 mg PO QD - ID consulted we appreciate their time and recommendations, unlikely to be cellulitis, recommend continue cefepime - Continue to elevate legs - Hold home Lasix restart upon discharge 5. Altered mental status, acute. Present on admission. Improving - Pt has history of hepatic encephalopathy, likely not taking lactulose for 1-2 days. However, her confusion may be due to her acute bleed, UTI, or cellulitis. Will treat underlying problems, continue to monitor. Consider brain imaging if confusion does not improve with resolution of other problems. - Continue home lactulose - Continue to monitor, much improved from yesterday 6. Chronic thrombocytopenia. Present on admission. - Plt 81 on admit. Plt ranged around 45-70 in 2013. - PLT today 65 - Continue to monitor CBC 7. Hyperglycemia, acute. Present on admission. - BG 151 on admit. - Continue Humalog low dose correctional scale. 8. Depression/Anxiety, chronic, present on admission - Continue home paroxetine, trazodone, and clonazepam Patient tolerating PO intake 9. Primary Biliary Cirrhosis, chronic, present on admission - Continue home ursodiol 10. GERD, chronic, present on admission -Continue treatment as above 11. Gastric leiomyoma , chronic, present on admission - EGD completed, noted for polypoid mass not appearing to be leiomyoma as previous thought 12. Osteoporosis - Hold home medications, resume as outpatient CODE STATUS: DNR/DNI GI: Zofran 4-8 mg PRN nausea DVT: prophylaxis SCD's while in bed Disposition: Likely discharge to SNF tomorrow pending transport and insurance approval. VTE Mechanical Devices: Intermittant Pneumatic CD Resuscitation Status: DNR/DNI:Do Not Resuscitate/Intubate Attending Statement The patient was seen and examined together with Dr. Teresa on 04/15/2016 and I agree with the history, exam and plan as outlined in the note above. . JABARI TERESA DO Apr 14, 2016 06:56 Adrian Gonzalez MD Apr 18, 2016 14:36
[2016-04-14 22:58] VITALS: BP 121/56; PULSE 102; RESP 24; O2SAT 99
[2016-04-15 03:01] VITALS: BP 118/55; PULSE 105; RESP 22; O2SAT 98
[2016-04-15 03:31] LABS: Mean Corpuscular Hemoglobin 29.6 pg (27.0-35.0); Mean Corpuscular Volume 91.1 fL (81-100)
--- NOTE | 2016-04-15 05:58 | NUR ---
Cellulitis/Edema/meds Cellulitis : detectable change, hot to touch, no C/O pain, legs ankles and LE edematous- +2 . Room Air. A&O x3 , C/O insomnia, asked about home-meds , will ask day shift Dr. Fleming draining pale yellow urine to gravity, Not on Tele. [facility] Sot Diet, Feet elevated on pillows.
[2016-04-15] MEDS: Pantoprazole 40 mg ER24 Tablet PO SCH (06:19)
--- NOTE | 2016-04-15 08:32 | NUR ---
[facility] can accept patient with to follow. Updated PLAYGROUND AIDE Addendum: 04/15/16 at 0841 by MARILUZ ROJAS CM Called and spoke with Roz Martin CM at [facility] [phone]. She is going to review patient for transfer to SNF today. Also called and spoke with Jarrod about acceptance/denial.
--- NOTE | 2016-04-15 08:37 | NUR ---
Social Work Note: Continued Discharge Data& Assessment: SW received second preference from pt daughter in law for SNF as [facility]. However, pt explained to SW that her there and she does not want to receive rehab at that facility. SW reminded pt that she makes her own decisions. Pt confirmed primary preference is for [facility]. SW to continue to follow. Plan: Anticipated discharge to SNF when medically ready pending insurance authorization. SW to follow up with [facility] regarding pt potentially acceptance. SW to continue to follow. BRIT Lewis
[2016-04-15 08:46] VITALS: BP 123/58; PULSE 93; RESP 16; O2SAT 98
[2016-04-15] MEDS: cefTRIAXone Inj 2,000 MG in Dextrose 5% Minibag Plus 50 ML IV SCH (08:56)
[2016-04-15] MEDS: Lactulose 20 Gm/30 mL 30 mL Syrup PO SCH (08:56)
--- NOTE | 2016-04-15 10:25 | NUR ---
Patient has been approved by Roz Martin CM at [facility] for SNF transfer. This has to happen today otherwise Roz will have to review again. Jarrod from [place] will need to come in and do beside assessment, also needed updated clinicals to show patient alert and oriented. Faxed to [phone]. Updated KINDERGARTEN TUTOR Addendum: 04/15/16 at 1439 by MARILUZ ROJAS CM Orders given to Jarrod during onsite and they will transport patient at 1500. BRIT is aware and packet is on chart
--- NOTE | 2016-04-15 10:38 | PCM.DIMED ---
JABARI TERESA DO 04/15/16 1038: Discharge Instructions Date of Service Apr 15, 2016 Dates of Hospitalization Apr 12, 2016 at 00:11 Discharge Diagnosis Discharge Diagnosis 1. Acute upper GI bleed. Present on admission. Resolved 2. Acute on chronic iron deficiency anemia. Present on admission. stable 3. Urinary tract infection, acute. Present on admission. 4. Chronic Lower extremity Edema. Present on admission. improving 5. Altered mental status, acute. Present on admission. Improving 6. Chronic thrombocytopenia. Present on admission. 7. Hyperglycemia, acute. Present on admission. 8. Depression/Anxiety, chronic, present on admission 9. Primary Biliary Cirrhosis, chronic, present on admission 10. GERD, chronic, present on admission 11. Gastric leiomyoma , chronic, present on admission 12. Osteoporosis, stable, present on admission Diet Heart Healthy Activity Limited until seen by PCP, Outpatient Physical Therapy Call your provider Fever or Chills, Shortness of breath, Bleeding, Chest pain, Vomitting, Excessive diarrhea, Weakness (unilateral) Patient Instructions 1. Acute upper GI bleed. Present on admission. Resolved - Avoid use of NSAIDs and Tylenol. - Continue Protonix 40 mg PO BID -Follow up with Gastroenterology 1-2 weeks after discharge 2. Acute on chronic iron deficiency anemia. Present on admission. stable - Hb 8.5 on admission, dropped to 7 in 2 hours. Baseline Hb appears to be 9-10. transfuse 2U PRBC on admission - Hb today 8.7 - Continue ferrous sulfate as outpatient 3. Urinary tract infection, acute. Present on admission. - UA showed 6-10 WBC, trace LE, many bacteria. - Urine/blood cultures positive for gram - rods, + for Klebsiella Pneumoniae - Continue fosfomycin single dose given for coverage of UTI 4. Chronic Lower extremity Edema. Present on admission. improving - Pt has a history of lower extremity edema but her son states that the erythema on bilateral legs is new, and the edema is worse. - Continue spironolactone 100 mg PO QD - Continue to elevate legs - Continue Lasix 40 lasix upon discharge 5. Altered mental status, acute. Present on admission. Improving - Pt has history of hepatic encephalopathy, likely not taking lactulose for 1-2 days. However, her confusion may be due to her acute bleed, UTI, or cellulitis. Will treat underlying problems, continue d to monitor. Likely AMS related to acute UTI, improved with treatment. - Continue home lactulose 6. Chronic thrombocytopenia. Present on admission. - Plt 81 on admit. Plt ranged around 45-70 in 2013. - PLT today 65 - Continue to monitor CBC 7. Hyperglycemia, acute. Present on admission. - Resume home medications as outpatient 8. Depression/Anxiety, chronic, present on admission - Continue home paroxetine, trazodone, and clonazepam Patient tolerating PO intake 9. Primary Biliary Cirrhosis, chronic, present on admission - Continue home ursodiol 10. GERD, chronic, present on admission -Continue treatment as above 11. Gastric leiomyoma , chronic, present on admission - EGD completed, noted for polypoid mass not appearing to be leiomyoma as previous thought 12. Osteoporosis - Hold home medications, resume as outpatient 13. 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 Follow-up plan Follow up with PCP in one week Follow-up Provider: [facility] Follow-up with PCP in: 1 week Provider: Bentley Shine MD Follow-up in: Other (next availability, non urgent follow up) Adrian Gonzalez MD 04/18/16 1436: Discharge Instructions Attending's Statement The patient was seen and examined together with Dr. Teresa on 04/15/2016 and I agree with the history, exam and plan as outlined in the note above. . JABARI TERESA DO Apr 15, 2016 10:38 Adrian Gonzalez MD Apr 18, 2016 14:36
[2016-04-15] MEDS ORDERED: PANT40TA3 PO (10:41)
[2016-04-15] MEDS ORDERED: KLO1T PO (10:41)
[2016-04-15] MEDS ORDERED: ONDA4VIA27 IVPUSH (10:41)
[2016-04-15] MEDS ORDERED: LACT10SO60 PO (10:41)
[2016-04-15] MEDS ORDERED: FURO-128 PO (11:05)
--- NOTE | 2016-04-15 15:26 | NUR ---
Social Work Note: Discharge Data& Assessment: Per pt is medically ready to discharge to [facility] for rehab. Joselyn Díaz is a 80 year old female admitted on 04/12/2016 for GI bleed. Per pt is medically improved and ready to discharge. MAGALY spoke with Jarrod, billing coordinator for [facility] who confirmed they are able to accept pt today and provide wheelchair van transportation to their facility. [facility] authorization obtained. MAGALY met with pt at bedside to confirm discharge plan and assess for any unmet needs. Pt is excited to discharge and begin rehab. Pt sons updated and agreeable to plan. Pt denies any other needs. Pt family denies any other needs. No other discharge needs identified. RN and MD updated and agreeable to plan. Plan: Per pt is medically ready to discharge to [facility] for rehab. Pt and pt family deny any other needs. All updated and agreeable to plan. No other discharge needs identified. BRIT Lewis
--- NOTE | 2016-04-15 15:49 | NUR ---
Discharge Pt discharged for transportation by [facility] Wheelchair Van to [facility]. Pt's IV dc'd intact, celis catheter removed. RN to RN report given to Shameka MAGALLANES. Pt's belongings gathered and transported with patient. Pt's family notified of transfer of care.
--- NOTE | 2016-04-15 19:20 | PCM.DC.MED ---
Discharge Summary Date of Service Apr 15, 2016 Dates of Hospitalization Date of Hospital Admission Apr 12, 2016 at 00:11 Date of Discharge: Apr 15, 2016 Providers: Admitting Physician: Yasmine Pritchard DO Primary Care Physician: Alex Attending Physician: Yasmine Pritchard DO Diagnosis at Time of Discharge Diagnosis at Time of Discharge 1. Acute upper GI bleed. Present on admission. Resolved 2. Acute on chronic iron deficiency anemia. Present on admission. stable 3. Urinary tract infection, acute. Present on admission. 4. Chronic Lower extremity Edema. Present on admission. improving 5. Altered mental status, acute. Present on admission. Improving 6. Chronic thrombocytopenia. Present on admission. 7. Hyperglycemia, acute. Present on admission. 8. Depression/Anxiety, chronic, present on admission 9. Primary Biliary Cirrhosis, chronic, present on admission 10. GERD, chronic, present on admission 11. Gastric leiomyoma , chronic, present on admission 12. Osteoporosis, stable, present on admission Procedures XRay, CTs & MRIs Brain CT IMPRESSION: 1. No acute intracranial findings. 2. Mild findings likely associated with chronic microvascular ischemic change. Dictated by: Marcia Petty M.D. on 04/12/2016 at 7:03 Approved by: Marcia Petty M.D. on 04/12/2016 at 7:19 Chest X-Ray IMPRESSION: Chronic interstitial changes. No acute pulmonary process. Dictated by: Teri De Los Santos M.D. on 04/11/2016 at 21:56 Approved by: Teri De Los Santos M.D. 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 Pt lives at [facility], and her son was called by staff reporting increased confusion. Son found pt walking in her room naked and was unable to answer questions normally. He noticed black tarry stools in her toilet. Patient had been seen in the ED 2 days ago for bilateral lower extremity swelling, and at the time was at her baseline, conversing well and answering questions appropriately. Pt states he last spoke to the pt that day and states this is a significant, acute change in her mental status. Other than her lower extremity edema, she had not complained of fevers, chills, shortness of breath, or abdominal pain when he last saw her. She has never drank and quit smoking 30 years ago. Family states she uses NSAIDs and Tylenol often and an open bottle of Aleve was found in her room. APAP level was normal. 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 Acute upper GI bleed. Present on admission. Resolved - Pt with hx of esophageal varices s/p banding, portal gastropathy and Dieulafoy 's lesion, and GERD presents with melena and hematemesis. Source of bleed could be related to any of her multiple conditions and she appears to be actively bleeding, so an urgent GI consult was made and and EGD is scheduled shortly. Family states pt may have been taking large amounts of NSAIDs and Tylenol. - Protonix 40 mg PO BID Continue as outpatient -GI consulted we appreciate their time and expertise 2. Acute on chronic iron deficiency anemia. Present on admission. stable - Hb 8.5 on admission, dropped to 7 in 2 hours. Baseline Hb appears to be 9-10. transfuse 2U PRBC on admission - Hb at discahrge 8.6 -Continue home ferrous sulfate at discharge 3. Urinary tract infection, acute. Present on admission. Resolved - UA showed 6-10 WBC, trace LE, many bacteria. - Urine/blood cultures positive for gram - rods, + for Klebsiella Pneumoniae - Given fosfomycin for UTI converge x 1 only - Continue cefepime for coverage of UTI, Discontinued at time of discharge 4. Chronic Lower extremity Edema. Present on admission. Resolved - Pt has a history of lower extremity edema but her son states that the erythema on bilateral legs is new, and the edema is worse. - Continue spironolactone 100 mg PO QD - ID consulted we appreciate their time and recommendations, unlikely to be cellulitis, recommend continue cefepime - Continue to elevate legs - Hold home Lasix restart upon discharge 5. Altered mental status, acute. Present on admission.Resolved - Pt has history of hepatic encephalopathy, likely not taking lactulose for 1-2 days. However, her confusion may be due to her acute bleed, UTI, or cellulitis. Will treat underlying problems, continue to monitor. Consider brain imaging if confusion does not improve with resolution of other problems. - Continue home lactulose - Resolved at time of discharge 6. Chronic thrombocytopenia. Present on admission. - Plt 81 on admit. Plt ranged around 45-70 in 2013. - PLT at discharge 64 7. Hyperglycemia, acute. Present on admission. - BG 151 on admit. - Continue Humalog low dose correctional scale. Discontinued at discharge 8. Depression/Anxiety, chronic, present on admission - Continue home paroxetine, trazodone, and clonazepam 9. Primary Biliary Cirrhosis, chronic, present on admission - Continue home ursodiol 10. GERD, chronic, present on admission -Continue treatment as above 11. Gastric leiomyoma , chronic, present on admission - EGD completed, noted for polypoid mass not appearing to be leiomyoma as previous thought 12. Osteoporosis - Hold home medications, resume as outpatient Exam Vital Signs (Last) Date Time Temp Pulse Resp B/P Pulse Ox O2 Delivery O2 Flow Rate FiO2 04/15/16 08:46 36.2 93 16 123/58 98 Room Air 04/12/16 03:40 2 Exam General: Alert, Oriented to place and person and time, No Acute Distress. Head: Normocephalic, atraumatic. External ears normal. Eyes: PERRLA, EOMI. Anicteric sclerae. Mouth: Mouth Normal, Mucous Membranes Moist/[place] Neck: Neck supple with full range of motion. Chest & Lungs: Clear to auscultation bilaterally with no crackles, wheezes, or rhonchi. Cardiovascular: Tachycardic, Normal S1, Normal S2, No Murmurs/Rubs/Gallops Abdomen: Non-tender, Non-distended, No masses, Normoactive bowel tones, Soft Extremities: Bilateral lower extremity pitting edema with erythema improved Neurological: Grossly Neurologically Intact, Normal Speech Test 04/11/16 21:00 04/11/16 21:45 04/11/16 22:35 04/12/16 04:30 Activated Partial Thromboplast Time 26.7sec (22.8-33.0) Hold Blue Top Tube Received (Received) Magnesium Level 2.3mg/dL (1.6-2.6) Pro-B-Type Natriuretic Peptide 237.3pg/mL (0-738) Hold Red Top Tube Received (Received) Hold [place] Top Tube Received (Received) Acetaminophen Level 15.0ug/mL Rx (10-25) Urine Color Yellow (YELLOW) Urine Appearance Slightly cloudy Urine pH 6.0 (5.0-8.0) Urine Specific [place] 1.020 (1.003-1.035) Urine Protein Negativemg/dL (NEG,TRACE) Urine Glucose (UA) Negativemg/dL (NEGATIVE) Urine Ketones Tracemg/dL (NEGATIVE) Urine Occult Blood Trace (NEGATIVE) Urine Nitrite Negative (NEGATIVE) Urine Bilirubin Negative (NEGATIVE) Urine Urobilinogen Normalmg/dL (NORMAL) Urine Leukocyte Esterase Trace (NEGATIVE) Urine RBC 0-2/hpf (0-2) Urine WBC 6-10/hpf (0-5) Urine Epithelial Cells Occasional/hpf (NONE-MOD) Urine Crystals None seen (NONE SEEN) Urine Bacteria Many/hpf (NONE-FEW) Urine Hyaline Casts None/lpf (NONE) Urine Granular Casts None seen (NONE SEEN) Urine Waxy Casts None seen (NONE SEEN) Urine Red Blood Cell Casts None seen (NONE SEEN) Urine White Blood Cell Casts None seen (NONE SEEN) Urine Mucus None seen (None Seen) Urine Trichomonas None seen (NONE SEEN) Urine Yeast None (NONE SEEN) Urine Culture Reflexed Indicated Lactic Acid Level 1.9mmol/L (0.4-2.0) Ammonia 211ug/dL (18-53) Procalcitonin 0.07ng/mL (See Comment) Prothrombin Time 13.1sec (8.1-12.5) Prothromb Time International Ratio 1.22ratio Troponin T 0.010ug/L (0.0-0.011) Test 04/13/16 23:00 04/14/16 03:15 04/14/16 09:45 04/15/16 03:20 Vancomycin Level Trough 11.5mcg/mL Total Bilirubin 0.9mg/dL (0.0-1.2) Aspartate Amino Transf (AST/SGOT) 40U/L (0-50) Alanine Aminotransferase (ALT/SGPT) 30U/L (0-32) Alkaline Phosphatase 71U/L (25-165) Total Protein 5.7g/dL (6.4-8.4) Albumin 2.6g/dL (3.4-5.0) Neutrophils (%) (Auto) 78.2% (40-74) Lymphocytes (%) (Auto) 9.2% (14-46) Monocytes (%) (Auto) 10.4% (4-12) Eosinophils (%) (Auto) 1.5% (0-5) Basophils (%) (Auto) 0.3% (0-3) White Blood Count 7.1th/mm3 (3.8-10.1) Red Blood Count 2.91mil/mm3 (3.90-5.20) Hemoglobin 8.6g/dL (12.0-15.6) Hematocrit 26.5% (35.0-46.0) Mean Corpuscular Volume 91.1fL (81-100) Mean Corpuscular Hemoglobin 29.6pg (27.0-35.0) Mean Corpuscular Hemoglobin Concent 32.5% (32.0-37.0) Red Cell Distribution Width 19.3% (12.3-15.4) Platelet Count 64bil/L (150-400) Sodium Level 136mEq/L (134-144) Potassium Level 3.9mEq/L (3.5-5.2) Chloride Level 107mEq/L (97-108) Carbon Dioxide Level 18mmol/L (18-29) Blood Urea Nitrogen 21mg/dL (8-27) Creatinine 0.64mg/dL (0.57-1.00) Estimat Glomerular Filtration Rate 128mL/min (>59) Glucose Level 114mg/dL (60-99) Calcium Level 7.9mg/dL (8.5-10.1) Discharge Medications Discharge Medications Furosemide (Lasix) 40 Mg Tablet 40 MG PO DAILY Prescribed by: JABARI PLASENCIA DO Lactulose (Lactulose) 20 Gm/30 Ml Solution 10 GM PO DAILY Prescribed by: JABARI PLASENCIA DO Pantoprazole (Pantoprazole DR) 40 Mg Tablet.dr 40 MG PO 0630,1730 Prescribed by: JABARI PLASENCIA DO Spironolactone (Spironolactone) 100 Mg Tablet 100 MG PO DAILY (Reported) Trazodone (Trazodone) 50 Mg Tablet 50 MG PO HS (Reported) Ursodiol (Ursodiol) 300 Mg Capsule 300 MG PO BID (Reported) As needed Clonazepam (Clonazepam) 1 Mg Tablet 1 MG PO 2-3X daily PRN PRN For Anxiety or Agitation Prescribed by: JABARI PLASENCIA DO Ondansetron PF (Ondansetron PF) 4 Mg/2 Ml Vial 4-8 MG IVPUSH Q4H PRN PRN For Nausea/Vomiting Prescribed by: JABARI PLASENCIA DO Followup Plan Follow-up plan Follow up with PCP in one week Discharge Diet: Heart Healthy Discharge Activity: Limited until seen by PCP, Outpatient Physical Therapy Patient Instructions 1. Acute upper GI bleed. Present on admission. Resolved - Avoid use of NSAIDs and Tylenol. - Continue Protonix 40 mg PO BID -Follow up with Gastroenterology 1-2 weeks after discharge 2. Acute on chronic iron deficiency anemia. Present on admission. stable - Hb 8.5 on admission, dropped to 7 in 2 hours. Baseline Hb appears to be 9-10. transfuse 2U PRBC on admission - Hb today 8.7 - Continue ferrous sulfate as outpatient 3. Urinary tract infection, acute. Present on admission. - UA showed 6-10 WBC, trace LE, many bacteria. - Urine/blood cultures positive for gram - rods, + for Klebsiella Pneumoniae - Continue cefepime for coverage of UTI for 7 days, prescription given for remainder of treatment course 4. Chronic Lower extremity Edema. Present on admission. improving - Pt has a history of lower extremity edema but her son states that the erythema on bilateral legs is new, and the edema is worse. - Continue spironolactone 100 mg PO QD - Continue to elevate legs - Continue Lasix 40 lasix upon discharge 5. Altered mental status, acute. Present on admission. Improving - Pt has history of hepatic encephalopathy, likely not taking lactulose for 1-2 days. However, her confusion may be due to her acute bleed, UTI, or cellulitis. Will treat underlying problems, continue d to monitor. Likely AMS related to acute UTI, improved with treatment. - Continue home lactulose 6. Chronic thrombocytopenia. Present on admission. - Plt 81 on admit. Plt ranged around 45-70 in 2013. - PLT today 65 - Continue to monitor CBC 7. Hyperglycemia, acute. Present on admission. - Resume home medications as outpatient 8. Depression/Anxiety, chronic, present on admission - Continue home paroxetine, trazodone, and clonazepam Patient tolerating PO intake 9. Primary Biliary Cirrhosis, chronic, present on admission - Continue home ursodiol 10. GERD, chronic, present on admission -Continue treatment as above 11. Gastric leiomyoma , chronic, present on admission - EGD completed, noted for polypoid mass not appearing to be leiomyoma as previous thought 12. Osteoporosis - Hold home medications, resume as outpatient 13. 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 Follow-up Provider: [facility] Follow-up with PCP in: 1 week Provider: Bentley Shine MD Follow-up in: Other (next availability, non urgent follow up) Time spent Greater than 30 minutes was spent in preparation of discharge with greater than 50% of that time dedicated to patient counseling and coordination of care. . Attending Statement The patient was seen and examined together with Dr. Plasencia on 04/15/2016 and I agree with the history, exam and plan as outlined in the note above. . JABARI PLASENCIA DO Apr 15, 2016 19:16 Adrian Gonzalez MD Apr 18, 2016 14:37
== END 2016-04-15 15:36 | DRG 378 ==
LOC: SED 20:53 → CCU 04-12 00:11 → PCC 04-12 17:00
PROVIDERS: ADMIT Internal Medicine; ATTEND Internal Medicine
PROC: 30233N1 Transfusion of Nonautologous Red Blood Cells into Peripheral Vein, Percutaneous Approach (ICD-10-PCS; 2016-04-12)
PROC: 0DJ08ZZ Inspection of Upper Intestinal Tract, Via Natural or Artificial Opening Endoscopic (ICD-10-PCS; principal; 2016-04-12 01:30)
DX: K92.1 Melena (principal); N39.0 Urinary tract infection, site not specified; K92.0 Hematemesis; D50.0 Iron deficiency anemia secondary to blood loss (chronic); B96.1 Klebsiella pneumoniae [K. pneumoniae] as the cause of diseases classified elsewhere; R60.0 Localized edema; R41.82 Altered mental status, unspecified; D69.6 Thrombocytopenia, unspecified; R73.9 Hyperglycemia, unspecified; F32.9 Major depressive disorder, single episode, unspecified; F41.9 Anxiety disorder, unspecified; K74.3 Primary biliary cirrhosis; K21.9 Gastro-esophageal reflux disease without esophagitis; Z66 Do not resuscitate; I85.00 Esophageal varices without bleeding; T39.395A Adverse effect of other nonsteroidal anti-inflammatory drugs [NSAID], initial encounter; Z87.891 Personal history of nicotine dependence